=== PATIENT | male | born 2000 | race Caucasian/White ===

== ENCOUNTER 2020-04-20 07:56 | Inpatient (IN) ==
[2020-04-20] MEDS ORDERED: LORazepam 1 MG TAB SL STA (09:16)
[2020-04-20 09:48] LABS: Basophils # (auto) 0.04 K/uL (0-0.2); Basophils % (auto) 0.4 %; Eosinophils # (auto) 0.05 K/uL (0-0.5); Eosinophils % (auto) 0.5 %; Hematocrit (blood only) 44.8 % (42-52); Hemoglobin 16.6 g/dL (14.0-18.0); Immature Granulocytes # (auto) 0.02 K/uL (0.00-0.02); Immature Granulocytes % (auto) 0.2 %; Lymphocytes # (auto) 1.52 K/uL (1.2-3.4); Lymphocytes % (auto) 15.7 %; Mean Corpuscular Hemoglobin 33.6 pg (25-34); Mean Corpuscular Hgb Conc 37.1 g/dL (32-36); Mean Corpuscular Volume 90.7 fL (80-100); Mean Platelet Volume 9.8 fL (7.4-10.4); Monocytes # (auto) 0.69 K/uL (0.11-0.59); Monocytes % (auto) 7.1 %; Neutrophils # (auto) 7.34 K/uL (1.4-6.5); Neutrophils % (auto) 76.1 %; Platelet Count 341 K/uL (130-400); RDW Coefficient of Variation 12.3 % (11.5-14.5); RDW Standard Deviation 41.1 fL (36.4-46.3); Red Blood Count 4.94 M/uL (4.7-6.1); White Blood Count 9.66 K/uL (4.8-10.8)
[2020-04-20 09:55] LABS: Appearance Urine Clear (Clear); Bacteria Urine Automated Negative (Negative); Bilirubin Urine Negative (Negative); Blood Urine Negative (Negative); Color Urine Dark Yellow; Glucose Urine UA Negative (Negative); Ketones Urine 3+ (Negative); Leukocyte Esterase Urine Negative (Negative); Nitrite Urine Negative (Negative); Protein Urine 1+ (Negative); RBC Urine Automated 0-4 /hpf (0-4); Specific Gravity Urine 1.029 (1.000-1.030); Urobilinogen Urine Negative (Negative)
[2020-04-20 10:05] LABS: Albumin Level 4.9 gm/dl (3.4-5.0); BUN Creatinine Ratio 12.7 (10-20); Calcium 9.4 mg/dl (8.5-10.1); Creatinine Clr Calc Pharmacy 99.9 ml/min; Est GFR (African American) 107.8; Est GFR (Non-African American) 93.1; Potassium 3.4 mmol/L (3.5-5.1)
[2020-04-20 10:12] LABS: Acetaminophen < 2 ug/ml (10-30); Salicylate < 1.7 mg/dl (2.8-20)
[2020-04-20 10:15] LABS: Albumin Globulin Ratio 1.3 (0.9-2); Bilirubin,Total 1.2 mg/dl (0.2-1); Globulin 3.7 gm/dl (2.5-4.0); Thyroid Stimulating Hormone 1.57 uIu/ml (0.300-4.500); Total Protein 8.6 gm/dl (6.4-8.2)
[2020-04-20 10:22] LABS: Amphetamines+Metham, Urine Neg (Neg); Barbiturates, Urine Neg (Neg); Benzodiazepine, Urine Neg (Neg); Cocaine, Urine Neg (Neg); MDMA (Ecstacy), Urine Neg (Neg); Methadone, Urine Neg (Neg); Opiate, Urine Neg (Neg); Phencyclidine, Urine Neg (Neg)
--- NOTE | 2020-04-20 12:17 | Emergency Department Note ---
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 Patient reports he has been progressively feeling this way over the past month or so but became worse over the past several days after becoming aware of the of a friend/acquaintance online and began thinking that it "could be him in any moment." The patient's friend and girlfriend were concerned and the patient's parents were contacted who drove up from [place] and were attempting to have the patient come back to them to their home in [place] where he could get some rest and gather himself however he did not feel "safe doing this". Ultimately he agreed and was interested in coming to the hospital for evaluation. However this in and of itself was a challenge as he perseverated on safety and apparently had to walk around her car numerous times before deciding it was not safe and thought to take an Welch but then perseverated on this not being safe as well. After repeated attempts they were able to get the patient in the car to the emergency department today. The patient denies any thoughts of hurting himself or others. He denies hearing voices other stone here. He reports having used marijuana in the past but has not done so recently. He denies any heavy alcohol use recently. On arrival the patient is anxious appearing but no acute distress, afebrile s table vital signs. He does exhibit pressured speech with flight of ideas and while he can be redirected this is somewhat difficult to do at times. He does admit that he knows some of his concerns are not "real" but he cannot help but being preoccupied with this. He initially was contemplating psychiatric admission voluntarily as his friends had encouraged him to do so but then he easily wavers on this and asks if he would be able to "sign himself out". We did discuss options with the patient and mother at the bedside about placement in the area versus attempting to go home to [place] and seek placement there however the patient certainly is exhibiting severe manic symptoms and it is arnie btful if they would physically/safely be able to get the patient safely to [place] for evaluation and placement. We did agree to proceed with medical clearance and blood work was performed which was unremarkable. WBC, H/H, platelets wnl. Chemistry without acidosis. LFTs and electrolytes without si gnificant abnormalities. UA negative for infection. Etoh undetectable. Drug screen positive for Marijuana. Covid-19 RNA, NAAT negative. Patient was medically cleared. Given the patient's degree of disorganization he certainly is limited and would not be considered to have capacity to decline treatment at this time. Thus, we will proceed with 302 petition given concern for inability to function and associated patient safety due to severe violet. Psychiatric CM and I discussed plan at length with patient's parents at the bedside and they are in agreement. Patient accepted to 3S under 302. Triage Nursing notes reviewed and agree them. Additional history obtained from mother. Prior medical records reviewed Vital Signs: reviewed and remarkable for no significant abnormalities Differential diagnosis: Mood disorder, infection, hypoglycemia, electrolyte abnormalities, cardiac sources, intracerebral event, toxicologic, trauma, neurologic, as well as other pathologies. ER treatment provided: See below. Laboratory studies: See below HPI: The patient is a 19-year-old [employer] student who presents to the emergency department accompanied by his mother with concern for new onset paranoid delusions in the setting of having insomnia where the patient has not slept for several days and continues to be concerned that he is "not safe". Patient reports he has been progressively feeling this way over the past month or so but became worse over the past several days after becoming aware of the of a friend/acquaintance online and began thinking that it "could be him in any moment." The patient's friend and girlfriend were concerned and the patient's parents were contacted who drove up from [place] and were attempting to have the patient come back to them to their home in [place] where he could get some rest and gather himself however he did not feel "safe doing this". Ultimately he agreed and was interested in coming to the hospital for evaluation. However this in and of itself was a challenge as he perseverated on safety and apparently had to walk around her car numerous times before deciding it was not safe and thought to take an Welch but then perseverated on this not being safe as well. After repeated attempts they were able to get the patient in the car to the emergency department today. The patient denies any thoughts of hurting himself or others. He denies hearing voices other stone here. He reports having used marijuana in the past but has not done so recently. He denies any heavy alcohol use recently. ROS: See above HPI for pertinent positives & negatives. A total of 10 systems reviewed and were otherwise negative. PAST MEDICAL HISTORY:See Below PAST SURGICAL HISTORY:See Below FAMILY HISTORY:See Below SOCIAL HISTORY:See Below HOME MEDICATIONS:See Below ALLERGIES:See Below VITALS:See Below PHYSICAL EXAMINATION: GENERAL: Awake, alert, restless/anxious-appearing, in no distress HENT: Normocephalic, atraumatic. Oropharynx unremarkable. EYES: Normal conjunctiva. Sclera non-icteric. EOMI. No nystamgus. PEARRL. NECK: Supple. No nuchal rigidity. FROM. No JVD. RESPIRATORY: Clear to auscultation. CARDIAC: Regular rate, normal rhythm. Extremities warm and well perfused. Pulses equal. ABDOMEN: Soft, non-distended. No tenderness to palpation. No rebound or guarding. No masses. RECTAL: Deferred. MUSCULOSKELETAL: Chest examination reveals no tenderness. The back is symmetrical on inspection without obvious abnormality. There is no CVA tenderness to palpation. No joint edema. LOWER EXTREMITIES: Calves are equal size bilaterally and non-tender. No edema. No discoloration. NEURO: Normal sensorium. No sensory or motor deficits noted. DTRs wnl. No clonus. SKIN: No rash or jaundice noted. PSYCH: Anxious appearing with colorful affect, pressured speech, flight of ideas. Positive paranoid delusions. Poor insight. Denies hallucinations, SI/HI, hopelessness. Ariel Cavanaugh MD Past Med/Surg History Medical History No active medical problems Social History Smoking Status: Current every day smoker Preferred Language: Colombian Communication Ability: Effective Beliefs That Will Affect Care: None Feels Safe at Home: Yes Assistive Devices: None Allergies Allergies Allergy/AdvReac Type Severity Reaction Status Date / Time No Known Allergies Allergy Unverified 04/20/20 13:32 Home Meds Home Medications Medication Instructions Recorded Confirmed No Known Home Medications 04/20/20 04/20/20 Results & Data (ED) Vital Signs Vital Signs - 24 hr 04/20/20 08:06 04/20/20 08:15 04/20/20 11:02 Temperature 36.7 C Temperature Source Oral Oral Pulse Rate 87 Pulse Rate [Right Finger] 78 Respiratory Rate 18 18 Respiratory Effort / Characteristics Non-Labored Non-Labored Respiratory Depth Normal Normal Blood Pressure 142/88 H Blood Pressure [Right Arm] 142/88 H Blood Pressure Mean 106 Blood Pressure Mean [Right Arm] 106 Pulse Oximetry 96 98 Oxygen Delivery Method Room Air Room Air Sepsis Recent Fever Within 48 Hours No Sepsis New/Unexplained Change in Mental Status N/A Sepsis Action Taken by Nursing No Action Required Laboratory Data Attestation: I reviewed the patient's lab results. Result diagrams: 04/20/20 09:30 04/20/20 09:30 Lab Results 04/20/20 04/20/20 04/20/20 Range/Units 09:30 09:30 09:30 WBC 9.66 (4.8-10.8) K/uL RBC 4.94 (4.7-6.1) M/uL Hgb 16.6 (14.0-18.0) g/dL Hct 44.8 (42-52) % MCV 90.7 (80-100) fL MCH 33.6 (25-34) pg MCHC 37.1 H (32-36) g/dL RDW Std Deviation 41.1 (36.4-46.3) fL RDW Coeff of Susan 12.3 (11.5-14.5) % Plt Count 341 (130-400) K/uL MPV 9.8 (7.4-10.4) fL Immature Gran % (Auto) 0.2 % Neut % (Auto) 76.1 % Lymph % (Auto) 15.7 % Thayer % (Auto) 7.1 % Eos % (Auto) 0.5 % Baso % (Auto) 0.4 % Neut # (Auto) 7.34 H (1.4-6.5) K/uL Lymph # (Auto) 1.52 (1.2-3.4) K/uL Thayer # (Auto) 0.69 H (0.11-0.59) K/uL Eos # (Auto) 0.05 (0-0.5) K/uL Baso # (Auto) 0.04 (0-0.2) K/uL Immature Gran # (Auto) 0.02 (0.00-0.02) K/uL Sodium 138 (136-145) mmol/L Potassium 3.4 L (3.5-5.1) mmol/L Chloride 104 (98-107) mmol/L Carbon Dioxide 22 (21-32) mmol/L Anion Gap 12.0 H (3-11) BUN 14 (7-18) mg/dl Creatinine 1.13 (0.6-1.4) mg/dl Est Cr Clr Drug Dosing 99.9 ml/min Est GFR ( Amer) 107.8 Est GFR (Non-Af Amer) 93.1 BUN/Creatinine Ratio 12.7 (10-20) Glucose 114 H (70-99) mg/dl Calcium 9.4 (8.5-10.1) mg/dl Total Bilirubin 1.2 H (0.2-1) mg/dl AST 20 (15-37) U/L ALT 25 (12-78) U/L Alkaline Phosphatase 67 (45-117) U/L Total Protein 8.6 H (6.4-8.2) gm/dl Albumin 4.9 (3.4-5.0) gm/dl Globulin 3.7 (2.5-4.0) gm/dl Albumin/Globulin Ratio 1.3 (0.9-2) TSH 1.570 (0.300-4.500) uIu/ml Salicylates < 1.7 L (2.8-20) mg/dl Acetaminophen < 2 L (10-30) ug/ml Ethyl Alcohol mg/dL (0-3) mg/dl COVID-19 Eval Order SARS-CoV-2, RNA, NAAT (NEGATIVE) 04/20/20 04/20/20 04/20/20 Range/Units 09:30 12:10 12:10 WBC (4.8-10.8) K/uL RBC (4.7-6.1) M/uL Hgb (14.0-18.0) g/dL Hct (42-52) % MCV (80-100) fL MCH (25-34) pg MCHC (32-36) g/dL RDW Std Deviation (36.4-46.3) fL RDW Coeff of Susan (11.5-14.5) % Plt Count (130-400) K/uL MPV (7.4-10.4) fL Immature Gran % (Auto) % Neut % (Auto) % Lymph % (Auto) % Thayer % (Auto) % Eos % (Auto) % Baso % (Auto) % Neut # (Auto) (1.4-6.5) K/uL Lymph # (Auto) (1.2-3.4) K/uL Thayer # (Auto) (0.11-0.59) K/uL Eos # (Auto) (0-0.5) K/uL Baso # (Auto) (0-0.2) K/uL Immature Gran # (Auto) (0.00-0.02) K/uL Sodium (136-145) mmol/L Potassium (3.5-5.1) mmol/L Chloride (98-107) mmol/L Carbon Dioxide (21-32) mmol/L Anion Gap (3-11) BUN (7-18) mg/dl Creatinine (0.6-1.4) mg/dl Est Cr Clr Drug Dosing ml/min Est GFR ( Amer) Est GFR (Non-Af Amer) BUN/Creatinine Ratio (10-20) Glucose (70-99) mg/dl Calcium (8.5-10.1) mg/dl Total Bilirubin (0.2-1) mg/dl AST (15-37) U/L ALT (12-78) U/L Alkaline Phosphatase (45-117) U/L Total Protein (6.4-8.2) gm/dl Albumin (3.4-5.0) gm/dl Globulin (2.5-4.0) gm/dl Albumin/Globulin Ratio (0.9-2) TSH (0.300-4.500) uIu/ml Salicylates (2.8-20) mg/dl Acetaminophen (10-30) ug/ml Ethyl Alcohol mg/dL < 3.0 (0-3) mg/dl COVID-19 Eval [facility] SARS-CoV-2, RNA, NAAT NEGATIVE (NEGATIVE) Administered Medications Discontinued Medications Lorazepam (Lorazepam 1 Mg Tab) 1 mg SL NOW STA Stop: 04/20/20 09:17 Last Admin: 04/20/20 10:58 Dose: Not Given Documented by: [id number] Discharge Plan Visit Data Chief Complaint: Mental Health Evaluation Stated Complaint: MENTAL HEALTH EVAL ED Provider: Ariel Cavanaugh Discharge Problem: Paranoid delusion, Manic behavior Patient Disposition: Admitted As Inpatient Discharge Instructions Interventions: ED Discharge Assessment Last Done: 04/20/20 15:28
[2020-04-20] MEDS ORDERED: SODIUM CHLORIDE 0.65% NA SOLN 45 ML (OCEAN) PRN (14:13)
[2020-04-20] MEDS ORDERED: ACETAMINOPHEN 325 MG TAB PO PRN (14:13)
[2020-04-20] MEDS ORDERED: ALUMINUM/MAGNESIUM SUSP 30 ML UDC PO PRN (14:13)
[2020-04-20] MEDS ORDERED: MAGNESIUM HYDROXIDE SUSP 30 ML UDC PO PRN (14:13)
[2020-04-20] MEDS ORDERED: BISMUTH SUBSALICYLATE LIQD 236 ML PO PRN (14:13)
[2020-04-20] MEDS ORDERED: hydrOXYzine HCl 25 MG TAB PO PRN (14:13)
[2020-04-20] MEDS: LORazepam 1 MG TAB PO PRN (23:33)
--- NOTE | 2020-04-21 10:01 | History & Physical ---
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 He does use MJ but recent use seems significantly decreased compared to prior to episode which would argue against substance induced psychosis and there is a family history of bipolar disorder. He is clearing following prn Risperdal and is willing to continue it. (1) Bipolar 1 disorder: The patient was admitted to the [facility] ([facility] mental [facility]) on q15 min checks (behavioral with suicide precautions) for safety. The patient will participate in group, recreational, and milieu therapies and will be offered additional individual and family sessions as clinically appropriate. Risks/benefits/alternatives reviewed as able re: Risperdal M tab 1 mg po qhs with additional prn. discussion included but was not limited to need for metabolic monitoring and risks of TD. Metabolic labs in am. Inventory Assets Strengths: intelligent, family support Needs: increase insight into condition, follow up providers. Risk Factors Assessment Male: Yes : Yes Do You Have Access To A Gun?: No Mental Health Diagnoses: Yes Previous Attempt: No Protective Factors Assessment : No Responsible for Young Children: No Employed: No Supportive Family: Yes Psychiatric History Identifying Data HECTOR TIPTON is a 19-year-old [employer] student from , has no prior psych history, and was admitted on 04/20/20 14:14 on a 302 commitment for disorganized and paranoid behavior. Chief Complaint "I just got really into work and wasn't sleeping". History of Present Illness Patient's roommates contacted family as he was not eating or sleeping well for several days and seemed disorganized. He became overly focussed on dying from food allergy after reading a story about a [facility] student dying from a reaction. Parents drove from to assist and had difficulty convincing him to come to ED due to his paranoia. He did not seem to understand the severity of his condition or what inpatient psych care would entail so he was ultimately committed. He exhibited restlessness and grandiosity but was not aggressive in ED but remained resistant to medication. Last night he accepted prn Ativan and Risperdal Mtab as ordered and was able to sleep 5 hours. He was up for a bit and then when back to sleep. Today he reports that he has been sleeping 4 hours a night for 2-3 weeks. 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 He denies investing his own money and add "yeah, I'm talking too fast--it sounds shady but it's not." He denies previous periods of depression, violet or hypomania. He states that his thoughts were racing about food being unsafe and that is improving but he'd prefer if staff would eat some of the food that he is to eat as a "taster". Past Psychiatric History Previous Psych History: none Current Psychiatric Diagnosis: None Previous Psych Admissions: none Do You Have Access To A Gun?: No History of Previous Suicide Attempt: No Past Medication Trials: n/a Allergies Allergy/AdvReac Type Severity Reaction Status Date / Time No Known Allergies Allergy Unverified 04/20/20 13:32 Home Medications Medication Instructions Recorded Confirmed Type No Known Home Medications 04/20/20 04/20/20 History Family History Family History of: Bipolar (maternal aunt) Alcohol History Hx of Alcohol Use Over the Past 12 Months: Yes (occasionally) Smoking Use Have You Smoked or Used Tobacco Products in the Last 30 Days: Yes tobacco type: e-cigarettes Smoking Status: Current every day smoker Substance History Hx of Prescription Med Misuse Over the Past 12 Months: No Hx of Over the Counter Med Misuse Over the Past 12 Months: No Hx of Inhalent Misuse Over the Past 12 Months: No Hx of Organic Substance Use Over the Past 12 Months: Yes (marijuana several times per week) Hx of Illegal Substances/Street Drug Use Over Past 12 Months: No Problems as a Result of Past Substance Use: None Identified Problems as a Result of Past Substance Use Comments: Unable to confirm problems related to substance use. Personal History Living Arrangements: Apartment Childhood: middle son of 3 boys Highest Grade Completed: High School Graduate and Some College ([employer]) Employment Status: Student Marital Status: Single Number Of Children: none Beliefs That Will Affect Care: None Current Legal Problems: No Hx Legal Problems: No Hx Traumatic Life Events: No Patient History Medical History No active medical problems Social History Smoking Status: Current every day smoker Preferred Language: Filipino Communication Ability: Effective Beliefs That Will Affect Care: None Feels Safe at Home: Yes Assistive Devices: None Review of Systems Review of Systems: All systems reviewed & are unremarkable except as noted in HPI & below Physical Exam Psychiatric: Orientation: alert Apperance: + disheveled Eye Contact: + fair eye contact Motor Behavior: no abnormal motor movements speech is hyperverbal but redirectible Affect: + labile affect (inappropriate laughter) Mood: + anxious mood Thought Process: + tangential thought process Thought Content: + paranoid and + delusions (grandiosity) Suicidal Thoughts: denies suicidal thoughts Homicidal Thoughts: denies homicidal thoughts Hallucinations: no auditory hallucinations and no visual hallucinations Cognition: language grossly intact; + attention not intact Estimated Intelligence: consistent with education level Insight: + poor insight Judgement: + poor judgement Vital Signs (Past 24 Hours): Last Vital Signs Temp 36.7 C 04/20/20 21:26 Pulse 106 H 04/20/20 15:52 Resp 20 04/20/20 15:52 BP 136/87 04/20/20 15:52 Pulse Ox 98 04/20/20 15:28 Exam Statement: A physical exam was performed in the ED by Dr. Cavanaugh for the purposes of medical clearance. I accept that physical as correct and adequate for the purposes of the inpatient physical exam. Results & Data ([facility]) Laboratory Results Laboratory Results - last 24 hr 04/20/20 04/20/20 04/20/20 09:30 09:30 09:30 Sodium 138 Potassium 3.4 L Chloride 104 Carbon Dioxide 22 Anion Gap 12.0 H BUN 14 Creatinine 1.13 Est Cr Clr Drug Dosing 99.9 Est GFR ( Amer) 107.8 Est GFR (Non-Af Amer) 93.1 BUN/Creatinine Ratio 12.7 Glucose 114 H Calcium 9.4 Total Bilirubin 1.2 H AST 20 ALT 25 Alkaline Phosphatase 67 Total Protein 8.6 H Albumin 4.9 Globulin 3.7 Albumin/Globulin Ratio 1.3 TSH 1.570 Salicylates < 1.7 L Urine Opiates Screen Ur Methadone, Qual Acetaminophen < 2 L Urine Barbiturates Ur Phencyclidine (PCP) U Amphetamin/Meth Scrn MDMA (Ecstasy) Screen U Benzodiazepines Scrn Ur Cocaine Metabolite U Marijuana (THC) Screen U Marijuana THC Carboxy Drug Screen Comment Ethyl Alcohol mg/dL < 3.0 COVID-19 Eval Order SARS-CoV-2, RNA, NAAT 04/20/20 04/20/20 04/20/20 12:10 12:10 Unknown Sodium Potassium Chloride Carbon Dioxide Anion Gap BUN Creatinine Est Cr Clr Drug Dosing Est GFR ( Amer) Est GFR (Non-Af Amer) BUN/Creatinine Ratio Glucose Calcium Total Bilirubin AST ALT Alkaline Phosphatase Total Protein Albumin Globulin Albumin/Globulin Ratio TSH Salicylates Urine Opiates Screen Neg Ur Methadone, Qual Neg Acetaminophen Urine Barbiturates Neg Ur Phencyclidine (PCP) Neg U Amphetamin/Meth Scrn Neg MDMA (Ecstasy) Screen Neg U Benzodiazepines Scrn Neg Ur Cocaine Metabolite Neg U Marijuana (THC) Screen Pos H U Marijuana THC Carboxy Drug Screen Comment Ethyl Alcohol mg/dL COVID-19 Eval [facility] SARS-CoV-2, RNA, NAAT NEGATIVE 04/20/20 Unknown Sodium Potassium Chloride Carbon Dioxide Anion Gap BUN Creatinine Est Cr Clr Drug Dosing Est GFR ( Amer) Est GFR (Non-Af Amer) BUN/Creatinine Ratio Glucose Calcium Total Bilirubin AST ALT Alkaline Phosphatase Total Protein Albumin Globulin Albumin/Globulin Ratio TSH Salicylates Urine Opiates Screen Ur Methadone, Qual Acetaminophen Urine Barbiturates Ur Phencyclidine (PCP) U Amphetamin/Meth Scrn MDMA (Ecstasy) Screen U Benzodiazepines Scrn Ur Cocaine Metabolite U Marijuana (THC) Screen U Marijuana THC Carboxy Pending Drug Screen Comment Pending Ethyl Alcohol mg/dL COVID-19 Eval Order SARS-CoV-2, RNA, NAAT Current Inpatient Medications Current Inpatient Medications: Current Inpatient Medications Acetaminophen (Acetaminophen 325 Mg Tab) 650 mg PO Q4H PRN PRN Reason: Headache or Minor Fever Stop: 05/20/20 14:12 Al Hydrox/Mg Hydrox/Simethicone (Aluminum/Magnesium Susp 30 Ml Udc) 30 ml PO Q4H PRN PRN Reason: GI Upset Stop: 05/20/20 14:12 Bismuth Subsalicylate (Bismuth Subsalicylate Liqd 236 Ml) 15 ml PO PRN PRN PRN Reason: Loose Stool Stop: 05/20/20 14:12 Hydroxyzine HCl (Hydroxyzine Hcl 25 Mg Tab) 50 mg PO HSZ PRN PRN Reason: Insomnia Stop: 05/20/20 14:12 Hydroxyzine HCl (Hydroxyzine Hcl 25 Mg Tab) 25 mg PO Q4H PRN PRN Reason: Anxiety Stop: 05/20/20 14:12 Lorazepam (Lorazepam 1 Mg Tab) 1 mg PO Q6 PRN PRN Reason: Anxiety Stop: 05/20/20 14:16 Last Admin: 04/20/20 23:33 Dose: 1 mg Documented by: Magnesium Hydroxide (Magnesium Hydroxide Susp 30 Ml Udc) 30 ml PO DAILY PRN PRN Reason: Constipation Stop: 05/20/20 14:12 Risperidone (Risperidone Odt 1mg) 1 mg PO Q6 PRN PRN Reason: Agitation Stop: 05/20/20 14:15 Last Admin: 04/20/20 23:33 Dose: 1 mg Documented by: Sodium Chloride (Sodium Chloride 0.65% Na Soln 45 Ml (Porter)) 1 - 2 sprays NA PRN PRN PRN Reason: Nasal Dryness/Congestion Stop: 05/20/20 14:12
[2020-04-21] MEDS ORDERED: BENZTROPINE MESYLATE 1 MG TAB PO PRN (10:30)
[2020-04-21] MEDS: LORazepam 1 MG TAB PO PRN (15:41)
[2020-04-22 07:26] LABS: Marijuana Quant, GCMS Urine 54 ng/mL (<5)
[2020-04-22 07:47] LABS: Glucose Fasting 92 mg/dl (70-99)
[2020-04-22 07:53] LABS: Chol HDL Ratio 2; Cholesterol 160 mg/dl (0-200); HDL Cholesterol 68 mg/dl; LDL Cholesterol Calculated 70 mg/dl; Triglycerides 109 mg/dl (0-150); VLDL Cholesterol 22 mg/dl
[2020-04-22] MEDS: LORazepam 1 MG TAB PO PRN (10:48)
--- NOTE | 2020-04-22 12:56 | Psychiatric Progress Note ---
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 He does use MJ but recent use seems significantly decreased compared to prior to episode which would argue against substance induced psychosis and there is a family history of bipolar disorder. Started Risperdal 1 mg hs & prn. 04/22--sleep and expansiveness improving, remains paranoid around food and blood draw. (1) Bipolar 1 disorder: 04/21/20--The patient was admitted to the [facility] ([facility]) on q15 min checks (behavioral with suicide precautions) for safety. The patient will participate in group, recreational, and milieu therapies and will be offered additional individual and family sessions as clinically appropriate. Risks/benefits/alternatives reviewed as able re: Risperdal M tab 1 mg po qhs with additional prn. discussion included but was not limited to need for metabolic monitoring and risks of TD. Metabolic labs in am. 04/22/20--increase Risperdal M tab to 0.5 mg po qam and 1 mg po qhs. It has been quite difficult to get patient to accept meds, but prefer trial of bid given tachy/low diastolic bp (likely dehydration). If he would refuse medications I do feel he is at significant risk of or serious injury due to his mental illness interfering with sleep/eating/safety within 30 days so I would support medications over objection. Inventory Assets Strengths: intelligent, family support Needs: increase insight into condition, follow up providers. Risk Factors Assessment Male: Yes : Yes Do You Have Access To A Gun?: No Mental Health Diagnoses: Yes Previous Attempt: No Protective Factors Assessment : No Responsible for Young Children: No Employed: No Supportive Family: Yes Interval History Identifying Information 19 yo male admit on 302 commitment for severe insomnia and subsequent paranoia. Chief Complaint "I still get worried about the food stuff, I said too much". Review of Systems Sleep Information Total Hours of Sleep: 7.25 Meal Information Percent Meal Consumed - Breakfast: 100 Percent Meal Consumed - Lunch: 50 Percent Meal Consumed - Dinner: 75 Nutrition Comment: pt. ate crenshaw, banana, and some packaged foods without prompting Subjective Subjective Patient was seen & assessed and interval progress reviewed with treatment team. Patient was walking in hallway without difficulty or exercise intolerance then met with me 1-on-1. When discussing his delusions he became very anxious, felt dizzy and tachy which resolved with Ativan though would not cause hypotension, likely related to fluid status as not drinking much. Prefers prepackaged food still but is eating. Some impulsive/disorganized behaviors like flushing saltines down the toilet and unable to state why. still hypertalkative at times. Physical Exam Psychiatric Orientation: alert Apperance: appropriately groomed Eye Contact: + fair eye contact Motor Behavior: no abnormal motor movements Affect: + anxious affect Mood: + anxious mood Thought Process: + tangential thought process Thought Content: + paranoid and + delusions (about food killing him) Suicidal Thoughts: denies suicidal thoughts Homicidal Thoughts: denies homicidal thoughts Hallucinations: no auditory hallucinations and no visual hallucinations Cognition: language grossly intact; + attention not intact Estimated Intelligence: consistent with education level Insight: + poor insight Judgement: + poor judgement Vital Signs (Past 24 Hours) Last Vital Signs Temp 36.5 C 04/22/20 06:56 Pulse 89 04/22/20 06:56 Resp 18 04/22/20 06:56 BP 117/83 04/22/20 06:56 Pulse Ox 98 04/20/20 15:28 Results & Data ([facility]) Laboratory Results Laboratory Results - last 24 hr 04/20/20 04/22/20 Unknown 07:13 Fasting Glucose 92 Triglycerides 109 Cholesterol 160 LDL Cholesterol, Calc 70 VLDL Cholesterol, Calc 22 HDL Cholesterol 68 Cholesterol/HDL Ratio 2 U Marijuana THC Carboxy 54 H Drug Screen Comment SEE NOTE Current Inpatient Medications Current Inpatient Medications: Current Inpatient Medications Acetaminophen (Acetaminophen 325 Mg Tab) 650 mg PO Q4H PRN PRN Reason: Headache or Minor Fever Stop: 05/20/20 14:12 Al Hydrox/Mg Hydrox/Simethicone (Aluminum/Magnesium Susp 30 Ml Udc) 30 ml PO Q4H PRN PRN Reason: GI Upset Stop: 05/20/20 14:12 Benztropine Mesylate (Benztropine Mesylate 1 Mg Tab) 1 mg PO TID PRN PRN Reason: Muscle Spasm Stop: 05/21/20 10:29 Bismuth Subsalicylate (Bismuth Subsalicylate Liqd 236 Ml) 15 ml PO PRN PRN PRN Reason: Loose Stool Stop: 05/20/20 14:12 Hydroxyzine HCl (Hydroxyzine Hcl 25 Mg Tab) 50 mg PO HSZ PRN PRN Reason: Insomnia Stop: 05/20/20 14:12 Hydroxyzine HCl (Hydroxyzine Hcl 25 Mg Tab) 25 mg PO Q4H PRN PRN Reason: Anxiety Stop: 05/20/20 14:12 Lorazepam (Lorazepam 1 Mg Tab) 1 mg PO Q6 PRN PRN Reason: Anxiety Stop: 05/20/20 14:16 Last Admin: 04/22/20 10:48 Dose: 1 mg Documented by: Magnesium Hydroxide (Magnesium Hydroxide Susp 30 Ml Udc) 30 ml PO DAILY PRN PRN Reason: Constipation Stop: 05/20/20 14:12 Risperidone (Risperidone Odt 1mg) 1 mg PO Q6 PRN PRN Reason: Agitation Stop: 05/20/20 14:15 Last Admin: 04/21/20 15:41 Dose: 1 mg Documented by: Risperidone (Risperidone Odt 1mg) 1 mg PO HS COY Stop: 05/21/20 21:59 Last Admin: 04/21/20 20:52 Dose: 1 mg Documented by: Sodium Chloride (Sodium Chloride 0.65% Na Soln 45 Ml ([place])) 1 - 2 sprays NA PRN PRN PRN Reason: Nasal Dryness/Congestion Stop: 05/20/20 14:12 Mental Health & Subst Abuse Tx Therapist Name of Therapist: NOne Filenet Architect Name of Filenet Architect: None Post Discharge Appointments Primary Care Physician Name Of Family Doctor: None in this area
[2020-04-23] MEDS: hydrOXYzine HCl 25 MG TAB PO PRN (02:59)
--- NOTE | 2020-04-23 08:07 | Psychiatric Progress Note ---
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 He does use MJ but recent use seems significantly decreased compared to prior to episode which would argue against substance induced psychosis and there is a family history of bipolar disorder. Started Risperdal 1 mg hs & prn. 04/22--sleep and expansiveness improving, remains paranoid around food and blood draw. (1) Bipolar 1 disorder: 04/21/20--The patient was admitted to the [facility] ([facility]) on q15 min checks (behavioral with suicide precautions) for safety. The patient will participate in group, recreational, and milieu therapies and will be offered additional individual and family sessions as clinically appropriate. Risks/benefits/alternatives reviewed as able re: Risperdal M tab 1 mg po qhs with additional prn. discussion included but was not limited to need for metabolic monitoring and risks of TD. Metabolic labs in am. 04/22/20--increase Risperdal M tab to 0.5 mg po qam and 1 mg po qhs. It has been quite difficult to get patient to accept meds, but prefer trial of bid given tachy/low diastolic bp (likely dehydration). If he would refuse medications I do feel he is at significant risk of or serious injury due to his mental illness interfering with sleep/eating/safety within 30 days so I would support medications over objection. --sleep and expansiveness improving, remains paranoid around food and blood draw. 04/23 -reviewed FLP and FG for baseline on an atypical antipsychotic, all values within normal limits. Continue risperidone 0.5 every morning and 1 mg at bedtime, plus as needed medication. -Mood is stabilizing, patient reporting less paranoia, insight improved. He indicates willingness to sign in voluntarily, will revisit again tomorrow. -Schedule family meeting with parents, coordinate with the [employer] as he indicates he will need to medically withdrawal. He will need aftercare in [place]. -Continue to encourage group attendance of participation, and start to work on discharge planning/safety plan. Inventory Assets Strengths: intelligent, family support Needs: increase insight into condition, follow up providers. Risk Factors Assessment Male: Yes : Yes Do You Have Access To A Gun?: No Mental Health Diagnoses: Yes Previous Attempt: No Protective Factors Assessment : No Responsible for Young Children: No Employed: No Supportive Family: Yes Interval History Identifying Information 19 yo male admit on 302 commitment for violet and paranoia. Chief Complaint "Good, I'm very confused still". Review of Systems Sleep Information Total Hours of Sleep: 4.5 Meal Information Percent Meal Consumed - Breakfast: 100 Percent Meal Consumed - Lunch: 80 Percent Meal Consumed - Dinner: 25 Nutrition Comment: per meal record Subjective Subjective Patient was seen & assessed and interval progress reviewed with nursing and social work. Staff report he remains paranoid about food and medication, resistant to take medications and requires extensive encouragement from staff to take his medication. He got hydroxyzine and lorazepam prns. He is declining a family meeting with his parents, although they came to town from and are aware that he is here. On my assessment, he reports he still feels confused, but is starting to eat more and has decided that he needs to take medication, and thinks that is helping. He references another patient who "seems like not the normal patient," and uncertainty about his own state of mind. He does think treatment is helping and that he is feeling better, and says he "doesn't want to leave too soon, until I'm back on track." He says he had "a lot of ideas" about business/investments, "but now I just wanna forget about them, I'm not here to play pretend, just want to live a simple life." He says his family and friends feel he needs to be here, "but I'm a lot different from them, just in the way I view society, a bigger world view." He references thoughts that he's "not sure if I'm supposed to tell someone or not," making connections where he is not sure there are any, and uncertainty about "what I'm doing here." He has paranoia re: sleep, "I get scared I'll fall asleep and forget," but thinks he has been resisting sleep in part because of that. He does say that his sleep is improving, and that the hydroxyzine he received last night was helpful. He reports feeling less paranoid about food, saying he is eating at least half of meals "and when I got here I wouldn't touch anything, I was very paranoid." He states he is open to treatment and wants to know how long he might need to be in the hospital. He is agreeing to a family meeting with parents, wants to withdraw from school, and take time to recover. Physical Exam Psychiatric Orientation: alert and cooperative Apperance: appropriately dressed, appropriately groomed and appeared stated age Tall thin white male dressed in sweatpants and a hooded sweatshirt, wearing a medical facemask, and seated in no acute distress. Eye Contact: good eye contact Motor Behavior: steady gait and station and no abnormal motor movements Speech: normal rate/rhythm/volume of speech Affect: euthymic affect and mood congruent with affect Calm, cooperative, and pleasant. "Better." Thought Process: goal directed thought process Thought Content: + paranoid and + delusions (Patient reports some thoughts that he does not think are reality based) Suicidal Thoughts: denies suicidal thoughts Homicidal Thoughts: denies homicidal thoughts Hallucinations: no auditory hallucinations and no visual hallucinations Cognition: attention grossly intact and language grossly intact; + recent memory not intact Insight: + fair insight Judgement: + fair judgement Vital Signs (Past 24 Hours) Last Vital Signs Temp 36.4 C L 04/23/20 06:53 Pulse 114 H 04/23/20 06:54 Resp 16 04/23/20 06:53 BP 121/78 04/23/20 06:54 Pulse Ox 98 04/20/20 15:28 Results & Data ([facility]) Current Inpatient Medications Current Inpatient Medications: Current Inpatient Medications Acetaminophen (Acetaminophen 325 Mg Tab) 650 mg PO Q4H PRN PRN Reason: Headache or Minor Fever Stop: 05/20/20 14:12 Al Hydrox/Mg Hydrox/Simethicone (Aluminum/Magnesium Susp 30 Ml Udc) 30 ml PO Q4H PRN PRN Reason: GI Upset Stop: 05/20/20 14:12 Benztropine Mesylate (Benztropine Mesylate 1 Mg Tab) 1 mg PO TID PRN PRN Reason: Muscle Spasm Stop: 05/21/20 10:29 Bismuth Subsalicylate (Bismuth Subsalicylate Liqd 236 Ml) 15 ml PO PRN PRN PRN Reason: Loose Stool Stop: 05/20/20 14:12 Hydroxyzine HCl (Hydroxyzine Hcl 25 Mg Tab) 50 mg PO HSZ PRN PRN Reason: Insomnia Stop: 05/20/20 14:12 Last Admin: 04/23/20 02:59 Dose: 50 mg Documented by: Hydroxyzine HCl (Hydroxyzine Hcl 25 Mg Tab) 25 mg PO Q4H PRN PRN Reason: Anxiety Stop: 05/20/20 14:12 Lorazepam (Lorazepam 1 Mg Tab) 1 mg PO Q6 PRN PRN Reason: Anxiety Stop: 05/20/20 14:16 Last Admin: 04/22/20 10:48 Dose: 1 mg Documented by: Magnesium Hydroxide (Magnesium Hydroxide Susp 30 Ml Udc) 30 ml PO DAILY PRN PRN Reason: Constipation Stop: 05/20/20 14:12 Risperidone (Risperidone Odt 1mg) 1 mg PO Q6 PRN PRN Reason: Agitation Stop: 05/20/20 14:15 Last Admin: 04/21/20 15:41 Dose: 1 mg Documented by: Risperidone (Risperidone Odt 1mg) 1 mg PO HS COY Stop: 05/21/20 21:59 Last Admin: 04/22/20 20:59 Dose: 1 mg Documented by: Risperidone (Risperidone Odt 0.5 Mg Soltab) 0.5 mg PO QAM COY Stop: 05/23/20 08:59 Sodium Chloride (Sodium Chloride 0.65% Na Soln 45 Ml ([place])) 1 - 2 sprays NA PRN PRN PRN Reason: Nasal Dryness/Congestion Stop: 05/20/20 14:12 Mental Health & Subst Abuse Tx Therapist Name of Therapist: NOne Deputy Chief Sheriff Name of Deputy Chief Sheriff: None Post Discharge Appointments Primary Care Physician Name Of Family Doctor: None in this area
[2020-04-23] MEDS: risperiDONE ODT 0.5 MG SOLTAB PO SCH (09:05)
[2020-04-23] MEDS: LORazepam 1 MG TAB PO PRN (14:04)
[2020-04-24] MEDS: risperiDONE ODT 0.5 MG SOLTAB PO SCH ×2 (08:52→20:58)
--- NOTE | 2020-04-24 11:05 | Psychiatric Progress Note ---
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 He does use MJ but recent use seems significantly decreased compared to prior to episode which would argue against substance induced psychosis and there is a family history of bipolar disorder. Mood has been improving and is less expansive; however, patient does seem to have ongoing paranoia and some distorted thinking. In general, he is making improvements with current treatment plan. Pt decompensates when speaking with parents on the phone, but will need a family meeting to discuss aftercare when he is appropriate. (1) Bipolar 1 disorder: 04/21/20--The patient was admitted to the [facility] ([facility] health unit) on q15 min checks (behavioral with suicide precautions) for safety. The patient will participate in group, recreational, and milieu therapies and will be offered additional individual and family sessions as clinically appropriate. Risks/benefits/alternatives reviewed as able re: Risperdal M tab 1 mg po qhs with additional prn. discussion included but was not limited to need for metabolic monitoring and risks of TD. Metabolic labs in am. 04/22/20--increase Risperdal M tab to 0.5 mg po qam and 1 mg po qhs. It has been quite difficult to get patient to accept meds, but prefer trial of bid given tachy/low diastolic bp (likely dehydration). If he would refuse medications I do feel he is at significant risk of or serious injury due to his mental illness interfering with sleep/eating/safety within 30 days so I would support medications over objection. --sleep and expansiveness improving, remains paranoid around food and blood draw. 04/23 -reviewed FLP and FG for baseline on an atypical antipsychotic, all values within normal limits. Continue risperidone 0.5 every morning and 1 mg at bedtime, plus as needed medication. -Mood is stabilizing, patient reporting less paranoia, insight improved. He indicates willingness to sign in voluntarily, will revisit again tomorrow. -Schedule family meeting with parents, [facility] with [facility] as he indicates he will need to medically withdrawal. He will need aftercare in [place]. -Continue to encourage group attendance of participation, and start to work on discharge planning/safety plan. 04/24 - Continue risperidone 0.5mg qAM, but titrating evening dose to 1.5mg - pt continues to have prn dosing available. - Pt was hopeful to schedule a family meeting with parents, but has been decompensating after casual phone conversations - will pursue a family meeting when patient is appropriate to participate - Pt indicates tentative plan to return home, and was encouraged to consider a partial hospitalization program if one is available - pt indicated he would be interested in this Inventory Assets Strengths: intelligent, family support Needs: increase insight into condition, follow up providers. Risk Factors Assessment Male: Yes : Yes Do You Have Access To A Gun?: No Mental Health Diagnoses: Yes Previous Attempt: No Protective Factors Assessment : No Responsible for Young Children: No Employed: No Supportive Family: Yes Interval History Identifying Information 19-year-old male admited on 302 commitment for violet and paranoia. Chief Complaint "Good. I'm definitely making progress each day." Review of Systems Notes Constitutional: does report mild fatigue after taking AM risperidone Cardiovascular: denied Respiratory: denied Gastrointestinal: denied Neurological: denied Psychiatric: denies symptoms other than stated above Total of at least 10 systems reviewed, pertinent positives as above and in HPI. Sleep Information Total Hours of Sleep: 5.5 Sleep Comments: patient was up once through the night to get a snack Meal Information Percent Meal Consumed - Breakfast: 100 Percent Meal Consumed - Lunch: 100 Percent Meal Consumed - Dinner: 90 Nutrition Comment: per meal record Subjective Subjective Patient was seen & assessed and interval progress reviewed with treatment team. Staff report the patient continues to be intermittently fearful, reporting to staff that he feels this is 'all part of a game, and [another patient on the unit] is a test." Pt is reportedly eating better, reporting less paranoia about food but is admitting to occasional distrust of staff and peers. Pt was seen today to assess progress since admission. Prior to our conversation, patient required encouragement from staff because he had been very overwhelmed with attempted phone call with his father. Although we are recommending a family meeting to begin sorting out discharge plans, it does not seem that patient is able to tolerate a meeting today. Pt does appear to be less anxious this afternoon and states he is "good. I'm definitely making progress each day." When asked what patient feels specially has improved, he states "my eating, sleeping, I'm showering, and I'm talking to people." He denies feeling as though people are tampering with his meals and reports his goal this evening is to "eat a really big dinner." Pt admits that he feels comfortable speaking with staff about concerns as they arise, but with further questioning he does admit that he still feels something or someone may be orchestrating these events. He states "not so much like a game, but there certainly are a lot of people that seem to have similar ideas here." Pt was reluctant to elaborate on this thought, admitting he had difficulty clearly explaining what he was thinking. This provider did explain that our unit functions as a treatment team, and that we are working collectively to support him and ensure he is able to continue to receive treatment after he leaves the hospital. There were several occasions like this where patient was encouraged to elaborate on thoughts, but he either declined or was unable to articulate his thoughts. Pt does seem to present himself in a professional manner with this provider, almost as if appearing to be more improved than he actually is. He does admit that he is hoping to spend some additional time on the unit "practicing what I learned." We reviewed yuliana douglas planning options and patient stated he would consider a partial hospitalization program back home if one is available. Pt did agree to titrate his dose of risperidone to 0.5mg qAM and 1.5mg qHS. He denied SI as well as other needs or concerns at this time. Physical Exam Psychiatric Orientation: alert, oriented x 3 and cooperative Apperance: appropriately dressed, appropriately groomed and appeared stated age Eye Contact: + fair eye contact Motor Behavior: steady gait and station and no abnormal motor movements Speech: normal rate/rhythm/volume of speech (using very professional language) Affect: + anxious affect (appears timid and shy) Mood: + anxious mood (reports nervousness, especially overwhelmed with phone calls to family); no depressed mood Thought Process: goal directed thought process (in general) Patient does seem to be presenting himself to be more reality-based than he presently is. Thought Content: + cognitive distortions, + ideas of reference and + persecution some residual ideas of reference with regard to feeling this is all part of a game, admitting - "there certainly are a lot of people that seem to have similar ideas here." and "this is definitely not a normal place, there seems to be more to this." Suicidal Thoughts: denies suicidal thoughts, denies suicidal plan and denies suicidal intent Homicidal Thoughts: denies homicidal thoughts Hallucinations: no auditory hallucinations and no visual hallucinations Cognition: attention grossly intact and language grossly intact Estimated Intelligence: consistent with education level Insight: + fair insight Judgement: + fair judgement Vital Signs (Past 24 Hours) Last Vital Signs Temp 36.3 C L 04/24/20 06:44 Pulse 80 04/24/20 06:44 Resp 16 04/24/20 06:44 BP 117/79 04/24/20 06:44 Pulse Ox 98 04/20/20 15:28 Results & Data ([facility]) Current Inpatient Medications Current Inpatient Medications: Current Inpatient Medications Acetaminophen (Acetaminophen 325 Mg Tab) 650 mg PO Q4H PRN PRN Reason: Headache or Minor Fever Stop: 05/20/20 14:12 Al Hydrox/Mg Hydrox/Simethicone (Aluminum/Magnesium Susp 30 Ml Udc) 30 ml PO Q4H PRN PRN Reason: GI Upset Stop: 05/20/20 14:12 Benztropine Mesylate (Benztropine Mesylate 1 Mg Tab) 1 mg PO TID PRN PRN Reason: Muscle Spasm Stop: 05/21/20 10:29 Bismuth Subsalicylate (Bismuth Subsalicylate Liqd 236 Ml) 15 ml PO PRN PRN PRN Reason: Loose Stool Stop: 05/20/20 14:12 Hydroxyzine HCl (Hydroxyzine Hcl 25 Mg Tab) 50 mg PO HSZ PRN PRN Reason: Insomnia Stop: 05/20/20 14:12 Last Admin: 04/23/20 02:59 Dose: 50 mg Documented by: Hydroxyzine HCl (Hydroxyzine Hcl 25 Mg Tab) 25 mg PO Q4H PRN PRN Reason: Anxiety Stop: 05/20/20 14:12 Last Admin: 04/23/20 22:52 Dose: 25 mg Documented by: Lorazepam (Lorazepam 1 Mg Tab) 1 mg PO Q6 PRN PRN Reason: Anxiety Stop: 05/20/20 14:16 Last Admin: 04/23/20 14:04 Dose: 1 mg Documented by: Magnesium Hydroxide (Magnesium Hydroxide Susp 30 Ml Udc) 30 ml PO DAILY PRN PRN Reason: Constipation Stop: 05/20/20 14:12 Risperidone (Risperidone Odt 1mg) 1 mg PO Q6 PRN PRN Reason: Agitation Stop: 05/20/20 14:15 Last Admin: 04/21/20 15:41 Dose: 1 mg Documented by: Risperidone (Risperidone Odt 1mg) 1 mg PO HS COY Stop: 05/21/20 21:59 Last Admin: 04/23/20 21:51 Dose: 1 mg Documented by: Risperidone (Risperidone Odt 0.5 Mg Soltab) 0.5 mg PO QAM COY Stop: 05/23/20 08:59 Last Admin: 04/24/20 08:52 Dose: 0.5 mg Documented by: Sodium Chloride (Sodium Chloride 0.65% Na Soln 45 Ml ([place])) 1 - 2 sprays NA PRN PRN PRN Reason: Nasal Dryness/Congestion Stop: 05/20/20 14:12 Mental Health & Subst Abuse Tx Therapist Name of Therapist: [employer] Name of Vp Purchasing: None Post Discharge Appointments Primary Care Physician Name Of Family Doctor: None in this area
[2020-04-24] MEDS: LORazepam 1 MG TAB PO PRN (12:05)
[2020-04-25] MEDS: risperiDONE ODT 0.5 MG SOLTAB PO SCH ×2 (09:33→20:51)
--- NOTE | 2020-04-25 09:50 | Psychiatric Progress Note ---
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 He does use MJ but recent use seems significantly decreased compared to prior to episode which would argue against substance induced psychosis and there is a family history of bipolar disorder. Mood has been improving and is less expansive and attendance to ADLs is improved; however, patient reports ongoing delusions and paranoia and admits natividad t he has been minimizing these symptoms but is now ready to be open with staff. He does feel that risperidone has been helpful, so will continue encouraging use of prn and titrate scheduled dosing as indicated. Pt decompensates when speaking with parents on the phone (likely delusions of reference), but will need a family meeting to discuss aftercare when he is appropriate. Patient remains at acute risk of harm to himself and others due to the severity of paranoia and delusional thinking. (1) Bipolar 1 disorder: 04/21/20--The patient was admitted to the [facility] ([facility] unit) on q15 min checks (behavioral with suicide precautions) for safety. The patient will participate in group, recreational, and milieu therapies and will be offered additional individual and family sessions as clinically appropriate. Risks/benefits/alternatives reviewed as able re: Risperdal M tab 1 mg po qhs with additional prn. discussion included but was not limited to need for metabolic monitoring and risks of TD. Metabolic labs in am. 04/22/20--increase Risperdal M tab to 0.5 mg po qam and 1 mg po qhs. It has been quite difficult to get patient to accept meds, but prefer trial of bid given tachy/low diastolic bp (likely dehydration). If he would refuse medications I do feel he is at significant risk of or serious injury due to his mental illness interfering with sleep/eating/safety within 30 days so I would support medications over objection. --sleep and expansiveness improving, remains paranoid around food and blood draw. 04/23 -reviewed FLP and FG for baseline on an atypical antipsychotic, all values within normal limits. Continue risperidone 0.5 every morning and 1 mg at bedtime, plus as needed medication. -Mood is stabilizing, patient reporting less paranoia, insight improved. He indicates willingness to sign in voluntarily, will revisit again tomorrow. -Schedule family meeting with parents, coordinate with [facility] as he indicates he will need to medically withdrawal. He will need aftercare in [place]. -Continue to encourage group attendance of participation, and start to work on discharge planning/safety plan. 04/24 - Continue risperidone 0.5mg qAM, but titrating evening dose to 1.5mg - pt continues to have prn dosing available. - Pt was hopeful to schedule a family meeting with parents, but has been decompensating after casual phone conversations - will pursue a family meeting when patient is appropriate to participate - Pt indicates tentative plan to return home, and was encouraged to consider a partial hospitalization program if one is available - pt indicated he would be interested in this 04/25 - Patient remains very delusional and paranoid, admitting that he has been minimizing the delusions and is now ready to be "open and honest about everything" - suspicious of medications, but still agreeing to utilize both scheduled and prn doses. - Risperidone was titrated last evening - consider further titration as indicated. Pt is still requiring prn medications of disorganized thoughts and anxiety - Pt remains unable to tolerate a family meeting at this time - having delusions of reference with numerous individuals, including parents, which would likely negatively contribute to the meeting if done prematurely Inventory Assets Strengths: intelligent, family support Needs: increase insight into condition, follow up providers. Risk Factors Assessment Male: Yes : Yes Do You Have Access To A Gun?: No Mental Health Diagnoses: Yes Previous Attempt: No Protective Factors Assessment : No Responsible for Young Children: No Employed: No Supportive Family: Yes Interval History Identifying Information 19-year-old male admited on 302 commitment for violet and paranoia. Chief Complaint "Really f*cking crazy..." Review of Systems Notes Constitutional: reports fatigue after receiving risperidone Cardiovascular: denied Respiratory: denied Gastrointestinal: denied Neurological: denied Psychiatric: denies symptoms other than stated above Total of at least 10 systems reviewed, pertinent positives as above and in HPI. Sleep Information Total Hours of Sleep: 6.5 Sleep Comments: pt on q-15 minute checks Meal Information Percent Meal Consumed - Breakfast: 100 Percent Meal Consumed - Lunch: 50 Percent Meal Consumed - Dinner: 100 Nutrition Comment: per meal record Subjective Subjective Patient was seen & assessed and interval progress reviewed with nursing and social work. Staff report the patient continues to be suspicious of medications (requesting they be open in front of him) and continues to report paranoia and loose associations. Pt did report during community meeting that he is more confused and struggling with his thoughts, this was reportedly causing his mood to fluctuate between a 4 and an 8/10 throughout the day. Pt was seen today to assess progress since admission. This provider asked the patient how things were going, to which he responded "really f*cking crazy." Pt takes a deep breath before asking, "are you someone I can talk to?" This provider encouraged the patient to share his concerns. He states "I'm just not ok. I'm having a lot of thoughts and I don't know what's real and I need to start being open with you guys about them." Pt started the conversation by stating "this kind of all started because I know information that could be very detrimental to society, things that very few other people know. I know that for a fact to be true." Pt then quickly moved on to stating "and I also know for a fact that people can be erased, they can just be gone. It could happen to me, or any one of the people that are calling in here to check on me." Pt then began discussing feeling that he is not a 'normal patient' and that there is "some kind of higher purpose for me" because "someone mentioned a court order, so I think this is a some sort of government facility, maybe?" This provider did explain the process related to involuntary commitments, and reviewed the fact that the patient has since signed in voluntarily for treatment, in hopes to begin conversations about reality testing. Pt did report this was reassuring and did agree to continue to discuss some of the other thoughts that are leading him to feel "confused and overwhelmed." Pt continued to share, "I'm pretty sure all of the patients are not like me, they all know a lot of things about me, sometimes more than I know about myself. I know this for a fact, but I don't know why." The patient was asked to provide examples and reported "well, like [specific patient] said they had to pee and, like, how would they know to say that when I had to pee too? And they were talking about doing their hair, like they knew that I looked in the mirror and did my hair this morning too." This provider attempted to discuss with the patient that many of us have common experiences like this, that on occasion coincide and attempted to work with the patient to further reality test some of these thoughts. Pt did respond well to these initial attempts and is agreeable with reaching out to staff for assistance with reality testing. He was also offered a prn of risperidone, which he agreed to "only if they bring it in the wrapping and open it in front of me." Pt did begin to seem less overwhelmed, but then reported "I think I'm ready to come to terms with the past 2 years of my life being a lie, or a delusion, or whatever you want to call it..." He then quit talking, and requested the risperidone. Pt was offered to continue conversation, but stated "no, this helped. Thank you." Physical Exam Psychiatric Orientation: alert, oriented x 3 and cooperative (pleasant, but timid) Apperance: appropriately dressed, appropriately groomed and appeared stated age Eye Contact: + fair eye contact Motor Behavior: steady gait and station and no abnormal motor movements Speech: normal rate/rhythm/volume of speech (soft volume) Affect: + depressed affect and + anxious affect Mood: + depressed mood and + anxious mood Thought Process: + flight of ideas and + looseness of associations; + thought process not linear or logical Thought Content: + paranoid, + delusions, + ideas of reference and + persecution Suicidal Thoughts: denies suicidal thoughts but does report worry that he will be "erased" Homicidal Thoughts: denies homicidal thoughts Hallucinations: no auditory hallucinations and no visual hallucinations Cognition: attention grossly intact and language grossly intact Estimated Intelligence: consistent with education level Insight: + impaired insight Judgement: + impaired judgement Vital Signs (Past 24 Hours) Last Vital Signs Temp 36.4 C L 04/25/20 06:38 Pulse 64 04/25/20 06:39 Resp 16 04/25/20 06:38 BP 111/67 04/25/20 06:39 Pulse Ox 98 04/20/20 15:28 Results & Data ([facility]) Current Inpatient Medications Current Inpatient Medications: Current Inpatient Medications Acetaminophen (Acetaminophen 325 Mg Tab) 650 mg PO Q4H PRN PRN Reason: Headache or Minor Fever Stop: 05/20/20 14:12 Al Hydrox/Mg Hydrox/Simethicone (Aluminum/Magnesium Susp 30 Ml Udc) 30 ml PO Q4H PRN PRN Reason: GI Upset Stop: 05/20/20 14:12 Benztropine Mesylate (Benztropine Mesylate 1 Mg Tab) 1 mg PO TID PRN PRN Reason: Muscle Spasm Stop: 05/21/20 10:29 Bismuth Subsalicylate (Bismuth Subsalicylate Liqd 236 Ml) 15 ml PO PRN PRN PRN Reason: Loose Stool Stop: 05/20/20 14:12 Hydroxyzine HCl (Hydroxyzine Hcl 25 Mg Tab) 50 mg PO HSZ PRN PRN Reason: Insomnia Stop: 05/20/20 14:12 Last Admin: 04/23/20 02:59 Dose: 50 mg Documented by: Hydroxyzine HCl (Hydroxyzine Hcl 25 Mg Tab) 25 mg PO Q4H PRN PRN Reason: Anxiety Stop: 05/20/20 14:12 Last Admin: 04/23/20 22:52 Dose: 25 mg Documented by: Lorazepam (Lorazepam 1 Mg Tab) 1 mg PO Q6 PRN PRN Reason: Anxiety Stop: 05/20/20 14:16 Last Admin: 04/24/20 12:05 Dose: 1 mg Documented by: Magnesium Hydroxide (Magnesium Hydroxide Susp 30 Ml Udc) 30 ml PO DAILY PRN PRN Reason: Constipation Stop: 05/20/20 14:12 Risperidone (Risperidone Odt 1mg) 1 mg PO Q6 PRN PRN Reason: Agitation Stop: 05/20/20 14:15 Last Admin: 04/21/20 15:41 Dose: 1 mg Documented by: Risperidone (Risperidone Odt 0.5 Mg Soltab) 0.5 mg PO QAM COY Stop: 05/23/20 08:59 Last Admin: 04/25/20 09:33 Dose: 0.5 mg Documented by: Risperidone (Risperidone Odt 0.5 Mg Soltab) 1.5 mg PO HS COY Stop: 05/24/20 21:59 Last Admin: 04/24/20 20:58 Dose: 1.5 mg Documented by: Sodium Chloride (Sodium Chloride 0.65% Na Soln 45 Ml ([place])) 1 - 2 sprays NA PRN PRN PRN Reason: Nasal Dryness/Congestion Stop: 05/20/20 14:12 Mental Health & Subst Abuse Tx Therapist Name of Therapist: [facility] [employer] Name of [employer]: None Post Discharge Appointments Primary Care Physician Name Of Family Doctor: None in this area
[2020-04-25] MEDS: LORazepam 1 MG TAB PO PRN (12:26)
[2020-04-26] MEDS: risperiDONE ODT 0.5 MG SOLTAB PO SCH (08:37)
[2020-04-26] MEDS: LORazepam 1 MG TAB PO PRN (13:28)
--- NOTE | 2020-04-26 17:28 | Psychiatric Progress Note ---
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 He does use MJ but recent use seems significantly decreased compared to prior to episode which would argue against substance induced psychosis and there is a family history of bipolar disorder. Mood has been improving and is less expansive and attendance to ADLs is improved; however, patient reports ongoing delusions and paranoia and admits natividad t he has been minimizing these symptoms but is now ready to be open with staff. He does feel that risperidone has been helpful, so will continue encouraging use of prn and titrate scheduled dosing as indicated. Pt decompensates when speaking with parents on the phone (likely delusions of reference), but will need a family meeting to discuss aftercare when he is appropriate. Patient remains at acute risk of harm to himself and others due to the severity of paranoia and delusional thinking. As of the afternoon of 04/26/2020 the patient's paranoid believes appear to be clearing. He reports that he has come to realize that the unit staff are genuinely healthcare professionals who were trying to help him. He also says that he is questioning his belief the treatment team members are making disparaging comments about him behind his back. He still harbor some vague believes that there may be people who may be trying to "destroy "him. The patient recalls that he had believed that these p eople thought that they had negative or damning information about him that they might use against him in an effort to destroy him, but he says that he now is able to focus on the fact that he notes that he does not have any history of having engaged in any behavior that would be considered damaging if it were to become known. Further adjustments in the patient's medication regimen are necessary and further stabilization is required before the patient can be safely and appropriately discharged to the community. The differential diagnosis includes drug-induced psychosis, atypical depression with psychotic features, and schizophreniform disorder. (1) Bipolar 1 disorder: 04/21/20--The patient was admitted to the [facility] ([facility] unit) on q15 min checks (behavioral with suicide precautions) for safety. The patient will participate in group, recreational, and milieu therapies and will be offered additional individual and family sessions as clinically appropriate. Risks/benefits/alternatives reviewed as able re: Risperdal M tab 1 mg po qhs with additional prn. discussion included but was not limited to need for metabolic monitoring and risks of TD. Metabolic labs in am. 04/22/20--increase Risperdal M tab to 0.5 mg po qam and 1 mg po qhs. It has been quite difficult to get patient to accept meds, but prefer trial of bid given tachy/low diastolic bp (likely dehydration). If he would refuse medications I do feel he is at significant risk of or serious injury due to his mental illness interfering with sleep/eating/safety within 30 days so I would support medications over objection. --sleep and expansiveness improving, remains paranoid around food and blood draw. 04/23 -reviewed FLP and FG for baseline on an atypical antipsychotic, all values within normal limits. Continue risperidone 0.5 every morning and 1 mg at bedtime, plus as needed medication. -Mood is stabilizing, patient reporting less paranoia, insight improved. He indicates willingness to sign in voluntarily, will revisit again tomorrow. -Schedule family meeting with parents, coordinate with the [facility] as he indicates he will need to medically withdrawal. He will need aftercare in [place]. -Continue to encourage group attendance of participation, and start to work on discharge planning/safety plan. 04/24 - Continue risperidone 0.5mg qAM, but titrating evening dose to 1.5mg - pt continues to have prn dosing available. - Pt was hopeful to schedule a family meeting with parents, but has been decompensating after casual phone conversations - will pursue a family meeting when patient is appropriate to participate - Pt indicates tentative plan to return home, and was encouraged to consider a partial hospitalization program if one is available - pt indicated he would be interested in this 04/25 - Patient remains very delusional and paranoid, admitting that he has been minimizing the delusions and is now ready to be "open and honest about everything" - suspicious of medications, but still agreeing to utilize both scheduled and prn doses. - Risperidone was titrated last evening - consider further titration as indicate d. Pt is still requiring prn medications of disorganized thoughts and anxiety - Pt remains unable to tolerate a family meeting at this time - having delusions of reference with numerous individuals, including parents, which would likely negatively contribute to the meeting if done prematurely 04/26 -The patient's paranoid delusions were in evidence early this morning, but they appear to have been improving over the course of the day. It is possible that the patient is taking a "flight into health" within the context of the fact that we have had several discharges today. However, he is convincing as he describes the delusional beliefs that he had been voicing at admission and even as recently as this morning now in terms that reference to these in the past tense. He acknowledges ongoing paranoid believes, but says that he feels that some of the believes that he had held earlier or not based in reality and he is now feeling much safer. -Patient indicates that he is tolerating risperidone well. We will increase the patient's dose of risperidone to a dose of 1 mg in the morning and 2 mg at bedtime. The patient has been advised accordingly. - Inventory Assets Strengths: intelligent, family support Needs: increase insight into condition, follow up providers. Risk Factors Assessment Male: Yes : Yes Do You Have Access To A Gun?: No Mental Health Diagnoses: Yes Previous Attempt: No Protective Factors Assessment : No Responsible for Young Children: No Employed: No Supportive Family: Yes Interval History Identifying Information 19-year-old male admited on 302 commitment for violet and paranoia. Chief Complaint "I got pretty confused.". Review of Systems Sleep Information Total Hours of Sleep: 6.5 Sleep Comments: pt on q-15 minute checks Meal Information Percent Meal Consumed - Breakfast: 100 Percent Meal Consumed - Lunch: 100 Percent Meal Consumed - Dinner: 90 Nutrition Comment: per meal record Subjective Subjective Patient was seen & assessed and interval progress reviewed with treatment team. I met individually with the patient in order to assess his current mental status, evaluate his response to treatment, make any necessary changes in the patient's treatment regimen and coordination with the patient, and dressed questions, issues and concerns that may arise. The patient began by describing the circumstances under which he had been admitted. He tells me that for the past several weeks, or perhaps as long as a month or 2 ago, he has been having what he refers to as "paranoid" thoughts. The intensity and frequency of these thoughts has been progressing over time and in the week prior to the admission he said that he was so paranoid that he believe that any moment somebody or something was about to kill him "or worse." The patient also said that he saw conspiracies and just about everything that happened around him. He said that, for example, a car drove past his house he was convinced that it was possibly a hit man or someone else who was coming to kill him. He began to be suspicious of his housemates. Within that context, he isolated himself to his room and often locked or barricaded the door. He also said that at times he thought he could hear people talking about him through the close doors and, on one occasion, on a television set that was playing in another room. He said that he was so frightened that for the 2 nights prior to the admission he had not slept at all and was so vigilant that he forced himself to stay awake at night for both nights and did not sleep at all during this period. Further, the patient said that he was not eating, nor was he drinking fluids during this period of time, evidently because of his suspicions.. Prior to that, he admits that he had been eating poorly and, for example, might go to a fast food restaurant and get 1 meal for the entire day. Probably contributing to the clinical picture is the fact that the patient acknowledges that he had been using a amphetamine dextroamphetamine 20 mg preparation that he had obtained from another student. He also acknowledges smoking large quantities of marijuana "day and night." Although he says that he does not derive much pleasure from the use of alcohol, he also says that he feels certain that he drinks more than the average [employer] student and estimates his alcohol use amount is consisting of between 6 and 12 alcoholic beverages, including shots of distilled spirits, per drinking episode, always on , Fridays, and Saturdays, and then usually "1 or 2 other days, like if it was somebody's birthday or someone felt like partying." Patient recalls initially believing that the staff on [address] were all in some sort of conspiracy and only pretending to be doctors and nurses and social workers when he first arrived. He believed that the team, and possibly some the other patients, were part of a conspiracy to kill him or otherwise cause him serious physical harm. The patient describes feeling absolutely convinced that he was being sent "upstairs" from the emergency department in order to be executed and notes that he was "terrified." Within this context, the patient said that he tried to mimic those other patients who he thought were "the favorites" on the unit so that he would be in less danger. Eventually, and especially today, he says that he has dropped many of these fears and has come to realize that the staff members who they say they are and are interested in helping him. He acknowledged that he is continuing to have thoughts that various people might be trying to harm him, but he says that in general these thoughts have been dissipating fairly quickly. He also reports that he has started sleeping very well and has had his appetite returned so that he is now eating full meals. Patient notes that he is eager to be discharged, but does not want to be discharged until we feel he is ready. He says that he is looking forward to getting back together with his girlfriend and, he also notes that his plan at this point is to return to [place], [place] in order to live with his parents and younger brother. He plans to take a medical withdrawal for the semester from [employer]. Physical Exam Psychiatric Orientation: alert and oriented x 3 Apperance: appropriately dressed Well below ideal body weight Eye Contact: good eye contact Motor Behavior: steady gait and station Speech: normal rate/rhythm/volume of speech Affect: + constricted affect (With occasional nervous laughter.) "Sad because I am here, but not depressed." Thought Process: + tangential thought process Thought Content: + delusions (Apparently resolving) and + derealization Suicidal Thoughts: denies suicidal thoughts Homicidal Thoughts: denies homicidal thoughts Hallucinations: no auditory hallucinations Patient does report that he has "heard" his name mentioned over the television at home prior to admission, and also feels that he may have heard people talking about him "in the hallway". These experiences may be illusions, rather than hallucinations. Cognition: recent memory grossly intact and language grossly intact Estimated Intelligence: + above average estimated intelligence Insight: + limited insight Judgement: + fair judgement Vital Signs (Past 24 Hours) Last Vital Signs Temp 36.5 C 04/26/20 06:00 Pulse 98 H 04/26/20 06:28 Resp 16 04/26/20 06:00 BP 100/66 04/26/20 06:28 Pulse Ox 98 04/20/20 15:28 Results & Data ([facility]) Current Inpatient Medications Current Inpatient Medications: Current Inpatient Medications Acetaminophen (Acetaminophen 325 Mg Tab) 650 mg PO Q4H PRN PRN Reason: Headache or Minor Fever Stop: 05/20/20 14:12 Al Hydrox/Mg Hydrox/Simethicone (Aluminum/Magnesium Susp 30 Ml Udc) 30 ml PO Q4H PRN PRN Reason: GI Upset Stop: 05/20/20 14:12 Benztropine Mesylate (Benztropine Mesylate 1 Mg Tab) 1 mg PO TID PRN PRN Reason: Muscle Spasm Stop: 05/21/20 10:29 Bismuth Subsalicylate (Bismuth Subsalicylate Liqd 236 Ml) 15 ml PO PRN PRN PRN Reason: Loose Stool Stop: 05/20/20 14:12 Hydroxyzine HCl (Hydroxyzine Hcl 25 Mg Tab) 50 mg PO HSZ PRN PRN Reason: Insomnia Stop: 05/20/20 14:12 Last Admin: 04/23/20 02:59 Dose: 50 mg Documented by: Hydroxyzine HCl (Hydroxyzine Hcl 25 Mg Tab) 25 mg PO Q4H PRN PRN Reason: Anxiety Stop: 05/20/20 14:12 Last Admin: 04/23/20 22:52 Dose: 25 mg Documented by: Lorazepam (Lorazepam 1 Mg Tab) 1 mg PO Q6 PRN PRN Reason: Anxiety Stop: 05/20/20 14:16 Last Admin: 04/26/20 13:28 Dose: 1 mg Documented by: Magnesium Hydroxide (Magnesium Hydroxide Susp 30 Ml Udc) 30 ml PO DAILY PRN PRN Reason: Constipation Stop: 05/20/20 14:12 Risperidone (Risperidone Odt 1mg) 1 mg PO Q6 PRN PRN Reason: Agitation Stop: 05/20/20 14:15 Last Admin: 04/26/20 15:02 Dose: 1 mg Documented by: Risperidone (Risperidone 1 Mg Tablet) 1 mg PO QAM COY Stop: 05/27/20 08:59 Risperidone (Risperidone 2 Mg Tablet) 2 mg PO HS COY Stop: 05/26/20 21:59 Sodium Chloride (Sodium Chloride 0.65% Na Soln 45 Ml (Moosic)) 1 - 2 sprays NA PRN PRN PRN Reason: Nasal Dryness/Congestion Stop: 05/20/20 14:12 Mental Health & Subst Abuse Tx Therapist Name of Therapist: [employer] Name of [employer] Driver: None Post Discharge Appointments Primary Care Physician Name Of Family Doctor: None in this area
[2020-04-26] MEDS: risperiDONE 2 MG TABLET PO SCH (21:17)
--- NOTE | 2020-04-27 07:57 | Psychiatric Progress Note ---
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 He does use MJ but recent use seems significantly decreased compared to prior to episode which would argue against substance induced psychosis and there is a family history of bipolar disorder. Mood has been improving and is less expansive and attendance to ADLs is improved; however, patient reports ongoing delusions and paranoia and admits natividad t he has been minimizing these symptoms but is now ready to be open with staff. He does feel that risperidone has been helpful, so will continue encouraging use of prn and titrate scheduled dosing as indicated. Patient has been better able to tolerate phone conversations and seems to be more engaged with his peers with less evidence of delusions/paranoia. A family meeting has been scheduled to discuss safety and discharge planning. Patient remains at acute risk of harm to himself and others due to the severity of paranoia and delusional thinking. (1) Bipolar 1 disorder: 04/21/20--The patient was admitted to the [facility] ([facility] mental health unit) on q15 min checks (behavioral with suicide precautions) for safety. The patient will participate in group, recreational, and milieu therapies and will be offered additional individual and family sessions as clinically appropriate. Risks/benefits/alternatives reviewed as able re: Risperdal M tab 1 mg po qhs with additional prn. discussion included but was not limited to need for metabolic monitoring and risks of TD. Metabolic labs in am. 04/22/20--increase Risperdal M tab to 0.5 mg po qam and 1 mg po qhs. It has been quite difficult to get patient to accept meds, but prefer trial of bid given tachy/low diastolic bp (likely dehydration). If he would refuse medications I do feel he is at significant risk of or serious injury due to his mental illness interfering with sleep/eating/safety within 30 days so I would support medications over objection. --sleep and expansiveness improving, remains paranoid around food and blood draw. 04/23 -reviewed FLP and FG for baseline on an atypical antipsychotic, all values within normal limits. Continue risperidone 0.5 every morning and 1 mg at bedtime, plus as needed medication. -Mood is stabilizing, patient reporting less paranoia, insight improved. He indicates willingness to sign in voluntarily, will revisit again tomorrow. -Schedule family meeting with parents, [facility] with [facility] as he indicates he will need to medically withdrawal. He will need aftercare in [place]. -Continue to encourage group attendance of participation, and start to work on discharge planning/safety plan. 04/24 - Continue risperidone 0.5mg qAM, but titrating evening dose to 1.5mg - pt continues to have prn dosing available. - Pt was hopeful to schedule a family meeting with parents, but has been decompensating after casual phone conversations - will pursue a family meeting when patient is appropriate to participate - Pt indicates tentative plan to return home, and was encouraged to consider a partial hospitalization program if one is available - pt indicated he would be interested in this 04/25 - Patient remains very delusional and paranoid, admitting that he has been minimizing the delusions and is now ready to be "open and honest about everything" - suspicious of medications, but still agreeing to utilize both scheduled and prn doses. - Risperidone was titrated last evening - consider further titration as indicated. Pt is still requiring prn medications of disorganized thoughts and anxiety - Pt remains unable to tolerate a family meeting at this time - having delusions of reference with numerous individuals, including parents, which would likely negatively contribute to the meeting if done prematurely 04/26 -The patient's paranoid delusions were in evidence early this morning, but they appear to have been improving over the course of the day. It is possible that the patient is taking a "flight into health" within the context of the fact that we have had several discharges today. However, he is convincing as he describes the delusional beliefs that he had been voicing at admission and even as recently as this morning now in terms that reference to these in the past tense. He acknowledges ongoing paranoid believes, but says that he feels that some of the believes that he had held earlier or not based in reality and he is now feeling much safer. -Patient indicates that he is tolerating risperidone well. We will increase the patient's dose of risperidone to a dose of 1 mg in the morning and 2 mg at bedtime. The patient has been advised accordingly. 3/13 - Pt continues to struggle with challenging "the seed thought" that "someone is going to hurt me" and that he has information that could be detrimental to society. He is proud of his progress with challenging the numerous other distortions, and admittedly states that he is less focused on the above thought than he was on admission. - I do agree with the assessment from yesterday, and there is still concern that patient may be experiencing a "flight into health", as his thoughts do still seem somewhat disorganized. Mood has been stable, though possibly inflated by the patient who rated his mood an 8/10 last evening - Continue current doses of risperidone - additional titration as indicated/tolerated - Family meeting with parents scheduled for tomorrow morning; will need to complete an intake phone call next week to determine if he is a candidate for an IOP back in [place]. Inventory Assets Strengths: intelligent, family support Needs: increase insight into condition, follow up providers. Risk Factors Assessment Male: Yes : Yes Do You Have Access To A Gun?: No Mental Health Diagnoses: Yes Previous Attempt: No Protective Factors Assessment : No Responsible for Young Children: No Employed: No Supportive Family: Yes Interval History Identifying Information 19-year-old male admited on 302 commitment for violet and paranoia. Chief Complaint "Um, I really do think I'm doing better." Review of Systems Notes Constitutional: denied Cardiovascular: denied Respiratory: denied Gastrointestinal: denied Neurological: denied Psychiatric: denies symptoms other than stated above Total of at least 10 systems reviewed, pertinent positives as above and in HPI. Sleep Information Total Hours of Sleep: 6.5 Sleep Comments: pt on q-15 minute checks Meal Information Percent Meal Consumed - Breakfast: 100 Percent Meal Consumed - Lunch: 100 Percent Meal Consumed - Dinner: 90 Nutrition Comment: per meal record Subjective Subjective Patient was seen & assessed and interval progress reviewed with nursing and social work. Staff report the patient has been much more engaged with peers after the discharge of a patient yesterday who was a behavioral challenge, and was unfortunately incorporated into Uriel's delusions. Pt reportedly had a positive conversation via phone with friends and has been a bit brighter in his affect. He did rate his mood an 8/10 and "happy" last evening. Pt was seen today to assess progress since admission. The patient states "I really do think I'm doing better." He continues to clearly verbalize that he is willing to follow recommendations from staff, but is increasingly hopeful for discharge in the next couple days (admittedly sooner than treatment team had felt to be appropriate). Pt states he has been attending groups and "binge reading" his patient work-book, with a particular focus on the section on cognitive distortions. Pt states that he has been doing well processing his delusions; however, the "one seed thought" continues to be present. Pt shares that the thought is that he has information that would be detrimental to society if release, but also that someone is trying to hurt him. Pt states that this thought in particular has been difficult to challenge, and that all of his other distorted thoughts stemmed from this. Pt did admit - "but I don't think I'm as worried about it. It's either not true, and then, who cares. Or it is true, but not a big deal, because no one has hurt me yet, I'm still here. So who cares." Pt does seem to be somewhat less fixated on these delusional thoughts, but may also be minimizing the distress he is experiencing from these lingering delusions. Pt states he is tolerating risperidone and has scheduled a meeting with his parents to discuss discharge planning. Pt remains agreeable for an IOP option, if accepted. He denies SI, hallucinations, or other obvious symptoms of psychosis. He was encouraged to continue to reach out to staff with needs or to processing any distressing thoughts. Physical Exam Psychiatric Orientation: alert, oriented x 3 and cooperative (and pleasant) Apperance: appropriately dressed, appropriately groomed and appeared stated age Eye Contact: good eye contact Motor Behavior: steady gait and station and no abnormal motor movements Speech: normal rate/rhythm/volume of speech Affect: + constricted affect (nervous laughter, occasional appropriate smiling) Mood: + anxious mood Thought Process: goal directed thought process and + circumstantial thought process Thought Content: + delusions and + derealization admits he is still struggling with a "seed thought" that he has classified information and someone is trying to hurt him; however, less fixated on this idea Suicidal Thoughts: denies suicidal thoughts and denies suicidal intent Homicidal Thoughts: denies homicidal thoughts Hallucinations: no auditory hallucinations and no visual hallucinations Cognition: attention grossly intact and language grossly intact Estimated Intelligence: consistent with education level Insight: + limited insight (though demonstrating much improvement when compared to admission) Judgement: + fair judgement Vital Signs (Past 24 Hours) Last Vital Signs Temp 36.5 C 04/27/20 06:56 Pulse 85 04/27/20 06:57 Resp 16 04/27/20 06:56 BP 91/60 L 04/27/20 06:57 Pulse Ox 98 04/20/20 15:28 Results & Data ([facility]) Current Inpatient Medications Current Inpatient Medications: Current Inpatient Medications Acetaminophen (Acetaminophen 325 Mg Tab) 650 mg PO Q4H PRN PRN Reason: Headache or Minor Fever Stop: 05/20/20 14:12 Al Hydrox/Mg Hydrox/Simethicone (Aluminum/Magnesium Susp 30 Ml Udc) 30 ml PO Q4H PRN PRN Reason: GI Upset Stop: 05/20/20 14:12 Benztropine Mesylate (Benztropine Mesylate 1 Mg Tab) 1 mg PO TID PRN PRN Reason: Muscle Spasm Stop: 05/21/20 10:29 Bismuth Subsalicylate (Bismuth Subsalicylate Liqd 236 Ml) 15 ml PO PRN PRN PRN Reason: Loose Stool Stop: 05/20/20 14:12 Hydroxyzine HCl (Hydroxyzine Hcl 25 Mg Tab) 50 mg PO HSZ PRN PRN Reason: Insomnia Stop: 05/20/20 14:12 Last Admin: 04/23/20 02:59 Dose: 50 mg Documented by: Hydroxyzine HCl (Hydroxyzine Hcl 25 Mg Tab) 25 mg PO Q4H PRN PRN Reason: Anxiety Stop: 05/20/20 14:12 Last Admin: 04/23/20 22:52 Dose: 25 mg Documented by: Lorazepam (Lorazepam 1 Mg Tab) 1 mg PO Q6 PRN PRN Reason: Anxiety Stop: 05/20/20 14:16 Last Admin: 04/26/20 13:28 Dose: 1 mg Documented by: Magnesium Hydroxide (Magnesium Hydroxide Susp 30 Ml Udc) 30 ml PO DAILY PRN PRN Reason: Constipation Stop: 05/20/20 14:12 Risperidone (Risperidone Odt 1mg) 1 mg PO Q6 PRN PRN Reason: Agitation Stop: 05/20/20 14:15 Last Admin: 04/26/20 15:02 Dose: 1 mg Documented by: Risperidone (Risperidone 1 Mg Tablet) 1 mg PO QAM COY Stop: 05/27/20 08:59 Risperidone (Risperidone 2 Mg Tablet) 2 mg PO HS COY Stop: 05/26/20 21:59 Last Admin: 04/26/20 21:17 Dose: 2 mg Documented by: Sodium Chloride (Sodium Chloride 0.65% Na Soln 45 Ml ([place])) 1 - 2 sprays NA PRN PRN PRN Reason: Nasal Dryness/Congestion Stop: 05/20/20 14:12 Mental Health & Subst Abuse Tx Therapist Name of Therapist: [facility] Manager Audio Name of Manager Audio: None Post Discharge Appointments Primary Care Physician Name Of Family Doctor: None in this area
[2020-04-27] MEDS: risperiDONE 1 MG TABLET PO SCH (08:45)
[2020-04-27] MEDS: risperiDONE 2 MG TABLET PO SCH (21:07)
--- NOTE | 2020-04-28 08:11 | Psychiatric Progress Note ---
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 He does use MJ but recent use seems significantly decreased compared to prior to episode which would argue against substance induced psychosis and there is a family history of bipolar disorder. Mood has been improving and is less expansive and attendance to ADLs is improved; however, patient reports ongoing delusions and paranoia and admits natividad t he has been minimizing these symptoms but is now ready to be open with staff. He does feel that risperidone has been helpful, so will continue encouraging use of prn and titrate scheduled dosing as indicated. Patient has been better able to tolerate phone conversations and seems to be more engaged with his peers with less evidence of delusions/paranoia. A family meeting has been scheduled to discuss safety and discharge planning. Patient remains at acute risk of harm to himself and others due to the severity of paranoia and delusional thinking. (1) Bipolar 1 disorder: 04/21/20--The patient was admitted to the [facility] ([facility]) on q15 min checks (behavioral with suicide precautions) for safety. The patient will participate in group, recreational, and milieu therapies and will be offered additional individual and family sessions as clinically appropriate. Risks/benefits/alternatives reviewed as able re: Risperdal M tab 1 mg po qhs with additional prn. discussion included but was not limited to need for metabolic monitoring and risks of TD. Metabolic labs in am. 04/22/20--increase Risperdal M tab to 0.5 mg po qam and 1 mg po qhs. It has been quite difficult to get patient to accept meds, but prefer trial of bid given tachy/low diastolic bp (likely dehydration). If he would refuse medications I do feel he is at significant risk of or serious injury due to his mental illness interfering with sleep/eating/safety within 30 days so I would support medications over objection. --sleep and expansiveness improving, remains paranoid around food and blood draw. 04/23 -reviewed FLP and FG for baseline on an atypical antipsychotic, all values within normal limits. Continue risperidone 0.5 every morning and 1 mg at bedtime, plus as needed medication. -Mood is stabilizing, patient reporting less paranoia, insight improved. He indicates willingness to sign in voluntarily, will revisit again tomorrow. -Schedule family meeting with parents, [facility] with [facility] as he indicates he will need to medically withdrawal. He will need aftercare in [place]. -Continue to encourage group attendance of participation, and start to work on discharge planning/safety plan. 04/24 - Continue risperidone 0.5mg qAM, but titrating evening dose to 1.5mg - pt continues to have prn dosing available. - Pt was hopeful to schedule a family meeting with parents, but has been decompensating after casual phone conversations - will pursue a family meeting when patient is appropriate to participate - Pt indicates tentative plan to return home, and was encouraged to consider a partial hospitalization program if one is available - pt indicated he would be interested in this 04/25 - Patient remains very delusional and paranoid, admitting that he has been minimizing the delusions and is now ready to be "open and honest about everything" - suspicious of medications, but still agreeing to utilize both scheduled and prn doses. - Risperidone was titrated last evening - consider further titration as indicated. Pt is still requiring prn medications of disorganized thoughts and anxiety - Pt remains unable to tolerate a family meeting at this time - having delusions of reference with numerous individuals, including parents, which would likely negatively contribute to the meeting if done prematurely 04/26 -The patient's paranoid delusions were in evidence early this morning, but they appear to have been improving over the course of the day. It is possible that the patient is taking a "flight into health" within the context of the fact that we have had several discharges today. However, he is convincing as he describes the delusional beliefs that he had been voicing at admission and even as recently as this morning now in terms that reference to these in the past tense. He acknowledges ongoing paranoid believes, but says that he feels that some of the believes that he had held earlier or not based in reality and he is now feeling much safer. -Patient indicates that he is tolerating risperidone well. We will increase the patient's dose of risperidone to a dose of 1 mg in the morning and 2 mg at bedtime. The patient has been advised accordingly. 3/13 - Pt continues to struggle with challenging "the seed thought" that "someone is going to hurt me" and that he has information that could be detrimental to society. He is proud of his progress with challenging the numerous other distortions, and admittedly states that he is less focused on the above thought than he was on admission. - I do agree with the assessment from yesterday, and there is still concern that patient may be experiencing a "flight into health", as his thoughts do still seem somewhat disorganized. Mood has been stable, though possibly inflated by the patient who rated his mood an 8/ last evening - Continue current doses of risperidone - additional titration as indicated/tolerated - Family meeting with parents scheduled for tomorrow morning; will need to complete an intake phone call next week to determine if he is a candidate for an IOP back in [place]. 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 Pt is mimicking reports of peers and fixated on how his thoughts and actions will affect them. Poor insight regarding the severity of his illness, need for hospitalization, and medication recommendations. - Continue current medication regimen at this time. Recommendations for titration of risperidone or cross-taper to paliperidone were discussed. Pt repeatedly offered an argument to reduce his dose, feeling with "time and talking to people" he could eliminate his symptoms without medications. - Family meeting with parents today was reportedly superficial, but positive in general - Attempt to schedule intake phone call with PHP option in [place] Inventory Assets Strengths: intelligent, family support Needs: increase insight into condition, follow up providers. Risk Factors Assessment Male: Yes : Yes Do You Have Access To A Gun?: No Mental Health Diagnoses: Yes Previous Attempt: No Protective Factors Assessment : No Responsible for Young Children: No Employed: No Supportive Family: Yes Interval History Identifying Information 19-year-old male admited on 302 commitment for violet and paranoia. Chief Complaint "I'm doing fine. I think we just need to communicate to my parents that Uriel's an adult and he can make his own decisions." Review of Systems Notes Constitutional: denied Cardiovascular: denied Respiratory: denied Gastrointestinal: denied Neurological: denied Psychiatric: denies symptoms other than stated above Total of at least 10 systems reviewed, pertinent positives as above and in HPI. Sleep Information Total Hours of Sleep: 5 Sleep Comments: pt on q-15 minute checks Meal Information Percent Meal Consumed - Breakfast: 100 Percent Meal Consumed - Lunch: 90 Percent Meal Consumed - Dinner: 100 Nutrition Comment: per meal record Subjective Subjective Patient was seen & assessed and interval progress reviewed with nursing and social work. Staff report the patient has been continuing attempts to combat distorted and delusional thinking. He reportedly required significant encouragement to take his HS dose of risperidone, telling staff he didn't need an antipsychotic, just an anxiolytic. Pt did share with staff that he was nervous to interact with peers due to feeling that his disorganized thoughts would negatively affect them. He was seen today prior to his family meeting to discuss progress since admission. The patient shares that he feels he is doing "fine" and discusses his goals for the meeting. Pt was very focused on staff supporting him in telling his parents that "Uriel's an adult and he can make his own decisions." Pt then began discussing medications, stating that he can decide if a medication is helping him or if he wants to switch medications. Pt was asked additional questions about this, as it was passed along that patient was overwhelmed last evening about the idea of being on an antipsychotic medication. Pt is now stating "I'm fine taking Risperdal fdc, or as long as I have to be on it, but I think maybe 0.5 in the morning and 0.5 at night." This provider attempted to process with the patient that this is a significant dose reduction, and that this is concerning given that he is continuing to reports of struggling with reality testing. This provider did state that recommendations would be further titrate his medication until symptoms are resolved - offering reassurance that dose necessary for acute stabilization of symptoms is not always the necessary dose to maintain symptoms once stabilized. Pt was also offered to consider switching to an alternative agent if his concerns were related to side effects. We reviewed the various uses for antipsychotic medications, and specifically reiterated patient's own reports that he feels the risperidone is helpful. This provider attempted to encourage patient to express his concerns so that they could be addressed - he continued to request lower medication doses. Ultimately, we agreed to continue his current dose and revisit the conversation. Per staff's interactions throughout the day, patient continues to be delusional and questions if he is the only real patient here. Fortunately, he continues to reach out to staff to process these thoughts and has been open when discussing his emotions. Pt denied other needs or concerns today. Physical Exam Psychiatric Orientation: alert, oriented x 3 and + guarded (superficially cooperative, but also somewhat argumentative at times) Apperance: appropriately dressed, appropriately groomed and appeared stated age Very slender, underweight Eye Contact: good eye contact Motor Behavior: steady gait and station and no abnormal motor movements Speech: normal rate/rhythm/volume of speech Affect: + anxious affect and + constricted affect (nervously laughing at times, occasional irritability when discussing meds) Mood: + depressed mood and + anxious mood Thought Process: + perseveration; + thought process not linear or logical Thought Content: + preoccupation, + paranoid, + delusions and + persecution afraid to interact with peers as he reported fear that they would also develop his delusional thoughts and didn't want to place extra stress on them Suicidal Thoughts: denies suicidal thoughts and denies suicidal intent Homicidal Thoughts: denies homicidal thoughts Hallucinations: no auditory hallucinations and no visual hallucinations Cognition: attention grossly intact and language grossly intact Insight: + impaired insight Judgement: + impaired judgement Vital Signs (Past 24 Hours) Last Vital Signs Temp 36.4 C L 04/28/20 06:49 Pulse 105 H 04/28/20 06:49 Resp 16 04/28/20 06:49 BP 112/75 04/28/20 06:50 Pulse Ox 98 04/20/20 15:28 Results & Data ([facility]) Current Inpatient Medications Current Inpatient Medications: Current Inpatient Medications Acetaminophen (Acetaminophen 325 Mg Tab) 650 mg PO Q4H PRN PRN Reason: Headache or Minor Fever Stop: 05/20/20 14:12 Al Hydrox/Mg Hydrox/Simethicone (Aluminum/Magnesium Susp 30 Ml Udc) 30 ml PO Q4H PRN PRN Reason: GI Upset Stop: 05/20/20 14:12 Benztropine Mesylate (Benztropine Mesylate 1 Mg Tab) 1 mg PO TID PRN PRN Reason: Muscle Spasm Stop: 05/21/20 10:29 Bismuth Subsalicylate (Bismuth Subsalicylate Liqd 236 Ml) 15 ml PO PRN PRN PRN Reason: Loose Stool Stop: 05/20/20 14:12 Hydroxyzine HCl (Hydroxyzine Hcl 25 Mg Tab) 50 mg PO HSZ PRN PRN Reason: Insomnia Stop: 05/20/20 14:12 Last Admin: 04/23/20 02:59 Dose: 50 mg Documented by: Hydroxyzine HCl (Hydroxyzine Hcl 25 Mg Tab) 25 mg PO Q4H PRN PRN Reason: Anxiety Stop: 05/20/20 14:12 Last Admin: 04/23/20 22:52 Dose: 25 mg Documented by: Lorazepam (Lorazepam 1 Mg Tab) 1 mg PO Q6 PRN PRN Reason: Anxiety Stop: 05/20/20 14:16 Last Admin: 04/26/20 13:28 Dose: 1 mg Documented by: Magnesium Hydroxide (Magnesium Hydroxide Susp 30 Ml Udc) 30 ml PO DAILY PRN PRN Reason: Constipation Stop: 05/20/20 14:12 Risperidone (Risperidone Odt 1mg) 1 mg PO Q6 PRN PRN Reason: Agitation Stop: 05/20/20 14:15 Last Admin: 04/26/20 15:02 Dose: 1 mg Documented by: Risperidone (Risperidone 1 Mg Tablet) 1 mg PO QAM COY Stop: 05/27/20 08:59 Last Admin: 04/27/20 08:45 Dose: 1 mg Documented by: Risperidone (Risperidone 2 Mg Tablet) 2 mg PO HS COY Stop: 05/26/20 21:59 Last Admin: 04/27/20 21:07 Dose: 2 mg Documented by: Sodium Chloride (Sodium Chloride 0.65% Na Soln 45 Ml ([place])) 1 - 2 sprays NA PRN PRN PRN Reason: Nasal Dryness/Congestion Stop: 05/20/20 14:12 Mental Health & Subst Abuse Tx Therapist Name of Therapist: [facility] Operations [employer]anner Name of Operations Planner: [facility] Phone Number for Operations Planner: [phone] Case Management Appointment Comment: Will follow up with a phone call Post Discharge Appointments Primary Care Physician Name Of Family Doctor: None in this area Contact Information Discharge Discharge Address: [id number] [place] [id number]
[2020-04-28] MEDS: risperiDONE 1 MG TABLET PO SCH (09:56)
[2020-04-28] MEDS: risperiDONE 2 MG TABLET PO SCH (21:33)
[2020-04-29] MEDS: hydrOXYzine HCl 25 MG TAB PO PRN (00:05)
[2020-04-29] MEDS: LORazepam 1 MG TAB PO PRN (00:40)
[2020-04-29] MEDS: risperiDONE 1 MG TABLET PO SCH (09:30)
--- NOTE | 2020-04-29 10:57 | Psychiatric Progress Note ---
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 He does use MJ but recent use seems significantly decreased compared to prior to episode which would argue against substance induced psychosis and there is a family history of bipolar disorder. Mood has been improving and is less expansive and attendance to ADLs is improved; however, patient reports ongoing delusions and paranoia and admits natividad t he has been minimizing these symptoms but is now ready to be open with staff. He does feel that risperidone has been helpful, so will continue encouraging use of prn and titrate scheduled dosing as indicated. Ongoing inpatient treatment is medically necessary due to continued psychosis with limited insight. (1) Bipolar 1 disorder: 04/21/20--The patient was admitted to the [facility] on q15 min checks (behavioral with suicide precautions) for safety. The patient will participate in group, recreational, and milieu therapies and will be offered additional individual and family sessions as clinically appropriate. Risks/benefits/alternatives reviewed as able re: Risperdal M tab 1 mg po qhs with additional prn. discussion included but was not limited to need for metabolic monitoring and risks of TD. Metabolic labs in am. 04/22/20--increase Risperdal M tab to 0.5 mg po qam and 1 mg po qhs. It has been quite difficult to get patient to accept meds, but prefer trial of bid given tachy/low diastolic bp (likely dehydration). If he would refuse medications I do feel he is at significant risk of or serious injury due to his mental illness interfering with sleep/eating/safety within 30 days so I would support medications over objection. --sleep and expansiveness improving, remains paranoid around food and blood draw. 04/23 -reviewed FLP and FG for baseline on an atypical antipsychotic, all values within normal limits. Continue risperidone 0.5 every morning and 1 mg at bedtime, plus as needed medication. -Mood is stabilizing, patient reporting less paranoia, insight improved. He indicates willingness to sign in voluntarily, will revisit again tomorrow. -Schedule family meeting with parents, coordinate with [facility] [employer] as he indicates he will need to medically withdrawal. He will need aftercare in [place]. -Continue to encourage group attendance of participation, and start to work on d ischarge planning/safety plan. 04/24 - Continue risperidone 0.5mg qAM, but titrating evening dose to 1.5mg - pt continues to have prn dosing available. - Pt was hopeful to schedule a family meeting with parents, but has been decompensating after casual phone conversations - will pursue a family meeting when patient is appropriate to participate - Pt indicates tentative plan to return home, and was encouraged to consider a partial hospitalization program if one is available - pt indicated he would be interested in this 04/25 - Patient remains very delusional and paranoid, admitting that he has been minimizing the delusions and is now ready to be "open and honest about everything" - suspicious of medications, but still agreeing to utilize both scheduled and prn doses. - Risperidone was titrated last evening - consider further titration as indicated. Pt is still requiring prn medications of disorganized thoughts and anxiety - Pt remains unable to tolerate a family meeting at this time - having delusions of reference with numerous individuals, including parents, which would likely negatively contribute to the meeting if done prematurely 04/26 -The patient's paranoid delusions were in evidence early this morning, but they appear to have been improving over the course of the day. It is possible that the patient is taking a "flight into health" within the context of the fact that we have had several discharges today. However, he is convincing as he describes the delusional beliefs that he had been voicing at admission and even as recently as this morning now in terms that reference to these in the past tense. He acknowledges ongoing paranoid believes, but says that he feels that some of the believes that he had held earlier or not based in reality and he is now feeling much safer. -Patient indicates that he is tolerating risperidone well. We will increase the patient's dose of risperidone to a dose of 1 mg in the morning and 2 mg at bedtime. The patient has been advised accordingly. 04/27 - Pt continues to struggle with challenging "the seed thought" that "someone is going to hurt me" and that he has information that could be detrimental to society. He is proud of his progress with challenging the numerous other distortions, and admittedly states that he is less focused on the above thought than he was on admission. - I do agree with the assessment from yesterday, and there is still concern that patient may be experiencing a "flight into health", as his thoughts do still seem somewhat disorganized. Mood has been stable, though possibly inflated by t he patient who rated his mood an 8/10 last evening - Continue current doses of risperidone - additional titration as indicated/tolerated - Family meeting with parents scheduled for tomorrow morning; will need to complete an intake phone call next week to determine if he is a candidate for an IOP back in [place]. 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 Pt is mimicking reports of peers and fixated on how his thoughts and actions will affect them. Poor insight regarding the severity of his illness, need for hospitalization, and medication recommendations. - Continue current medication regimen at this time. Recommendations for titration of risperidone or cross-taper to paliperidone were discussed. Pt repeatedly offered an argument to reduce his dose, feeling with "time and talking to people" he could eliminate his symptoms without medications. - Family meeting with parents today was reportedly superficial, but positive in general - Attempt to schedule intake phone call with PHP option in [place] 04/29 -Continue inpatient treatment, schedule intake with [facility] Inventory Assets Strengths: intelligent, family support Needs: increase insight into condition, follow up providers. Risk Factors Assessment Male: Yes : Yes Do You Have Access To A Gun?: No Mental Health Diagnoses: Yes Previous Attempt: No Protective Factors Assessment : No Responsible for Young Children: No Employed: No Supportive Family: Yes Interval History Identifying Information 19-year-old male admited on 302 commitment for violet and paranoia. Chief Complaint "Good, much better honestly". Review of Systems Sleep Information Total Hours of Sleep: 4.5 Sleep Comments: pt on q-15 minute checks Meal Information Percent Meal Consumed - Breakfast: 25 Percent Meal Consumed - Lunch: 100 Percent Meal Consumed - Dinner: 100 Nutrition Comment: per meal record Subjective Subjective Patient was seen & assessed and interval progress reviewed with treatment team. Staff report he has been more paranoid over the weekend, suspicious of medications and requiring significant staff encouragement to take them. He was very focused on discharge, telling staff that he did not need to be here anymore and wanted to go home with parents. He slept poorly overnight, was up in the middle of the night telling staff that he felt like he was going to "lose my mind," which he attributed to being in the hospital. He received hydroxyzine 50 mg and Ativan 1 mg. On my assessment, he states he believes he is doing much better, as he is able to reality test thoughts like "the government is coming after me, or people like me." He says he feels he is "learning how to deal with the thoughts myself instead of talking about them," is talking about that makes him feel worse and "sends me down a tunnel." He says he now thinks "it is more likely that I am just a normal person that no one would go after, and that you guys are just nurses trying to help me." He admits to poor sleep overnight, which he attributes to being anxious about being in the hospital, "cabin fever." He says he cannot stay here past tomorrow morning, and believes that his parents are coming to pick him up. He was strongly encouraged to focus on setting up the next stage of treatment (PHP), and wanted to know exactly when it would occur. Physical Exam Psychiatric Orientation: alert and cooperative (Partially, focused on discharge) Apperance: appropriately dressed and appeared stated age Thin, dressed in shorts and a T-shirt, seated in no acute distress Eye Contact: + fair eye contact Motor Behavior: steady gait and station and no abnormal motor movements Irritable tone Stable, irritable edge Mood: + irritable mood Thought Process: + perseveration (On leaving) Thought Content: + paranoid, + cognitive distortions and + persecution Suicidal Thoughts: denies suicidal thoughts Homicidal Thoughts: denies homicidal thoughts Hallucinations: no auditory hallucinations and no visual hallucinations Cognition: attention grossly intact and language grossly intact Insight: + limited insight Judgement: + limited judgement Vital Signs (Past 24 Hours) Last Vital Signs Temp 36.4 C L 04/29/20 06:51 Pulse 116 H 04/29/20 06:52 Resp 16 04/29/20 06:51 BP 106/63 04/29/20 06:52 Pulse Ox 98 04/20/20 15:28 Results & Data ([facility]) Current Inpatient Medications Current Inpatient Medications: Current Inpatient Medications Acetaminophen (Acetaminophen 325 Mg Tab) 650 mg PO Q4H PRN PRN Reason: Headache or Minor Fever Stop: 05/20/20 14:12 Al Hydrox/Mg Hydrox/Simethicone (Aluminum/Magnesium Susp 30 Ml Udc) 30 ml PO Q4H PRN PRN Reason: GI Upset Stop: 05/20/20 14:12 Benztropine Mesylate (Benztropine Mesylate 1 Mg Tab) 1 mg PO TID PRN PRN Reason: Muscle Spasm Stop: 05/21/20 10:29 Bismuth Subsalicylate (Bismuth Subsalicylate Liqd 236 Ml) 15 ml PO PRN PRN PRN Reason: Loose Stool Stop: 05/20/20 14:12 Hydroxyzine HCl (Hydroxyzine Hcl 25 Mg Tab) 50 mg PO HSZ PRN PRN Reason: Insomnia Stop: 05/20/20 14:12 Last Admin: 04/29/20 00:05 Dose: 50 mg Documented by: Hydroxyzine HCl (Hydroxyzine Hcl 25 Mg Tab) 25 mg PO Q4H PRN PRN Reason: Anxiety Stop: 05/20/20 14:12 Last Admin: 04/23/20 22:52 Dose: 25 mg Documented by: Lorazepam (Lorazepam 1 Mg Tab) 1 mg PO Q6 PRN PRN Reason: Anxiety Stop: 05/20/20 14:16 Last Admin: 04/29/20 00:40 Dose: 1 mg Documented by: Magnesium Hydroxide (Magnesium Hydroxide Susp 30 Ml Udc) 30 ml PO DAILY PRN PRN Reason: Constipation Stop: 05/20/20 14:12 Risperidone (Risperidone Odt 1mg) 1 mg PO Q6 PRN PRN Reason: Agitation Stop: 05/20/20 14:15 Last Admin: 04/26/20 15:02 Dose: 1 mg Documented by: Risperidone (Risperidone 1 Mg Tablet) 1 mg PO QAM COY Stop: 05/27/20 08:59 Last Admin: 04/29/20 09:30 Dose: 1 mg Documented by: Risperidone (Risperidone 2 Mg Tablet) 2 mg PO HS COY Stop: 05/26/20 21:59 Last Admin: 04/28/20 21:33 Dose: 2 mg Documented by: Sodium Chloride (Sodium Chloride 0.65% Na Soln 45 Ml ([place])) 1 - 2 sprays NA PRN PRN PRN Reason: Nasal Dryness/Congestion Stop: 05/20/20 14:12 Mental Health & Subst Abuse Tx Therapist Name of Therapist: . [facility] Name of [facility]: [facility] Phone Number for [facility]: [phone] Date of Appointment with [facility] Guide: 05/03/20 Time of Appointment with [facility] Guide: 11:00 a.m. Case Management Appointment Comment: Will call you to discuss school Post Discharge Appointments Primary Care Physician Name Of Family Doctor: . Contact Information Discharge Discharge Address: [address] [place] [address]
[2020-04-29] MEDS: risperiDONE 2 MG TABLET PO SCH (21:20)
[2020-04-30] MEDS: risperiDONE 1 MG TABLET PO SCH (09:09)
--- NOTE | 2020-04-30 10:29 | Psychiatric Progress Note ---
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 He does use MJ but recent use seems significantly decreased compared to prior to episode which would argue against substance induced psychosis and there is a family history of bipolar disorder. Mood has been improving and is less expansive and attendance to ADLs is improved; however, patient reports ongoing delusions and paranoia and admits natividad t he has been minimizing these symptoms but is now ready to be open with staff. He does feel that risperidone has been helpful, so will continue encouraging use of prn and titrate scheduled dosing as indicated. Ongoing inpatient treatment is medically necessary due to continued psychosis with limited insight. (1) Bipolar 1 disorder: 04/21/20--The patient was admitted to the [facility] ([facility]) on q15 min checks (behavioral with suicide precautions) for safety. The patient will participate in group, recreational, and milieu therapies and will be offered additional individual and family sessions as clinically appropriate. Risks/benefits/alternatives reviewed as able re: Risperdal M tab 1 mg po qhs with additional prn. discussion included but was not limited to need for metabolic monitoring and risks of TD. Metabolic labs in am. 04/22/20--increase Risperdal M tab to 0.5 mg po qam and 1 mg po qhs. It has been quite difficult to get patient to accept meds, but prefer trial of bid given tachy/low diastolic bp (likely dehydration). If he would refuse medications I do feel he is at significant risk of or serious injury due to his mental illness interfering with sleep/eating/safety within 30 days so I would support medications over objection. --sleep and expansiveness improving, remains paranoid around food and blood draw. 04/23 -reviewed FLP and FG for baseline on an atypical antipsychotic, all values within normal limits. Continue risperidone 0.5 every morning and 1 mg at bedtime, plus as needed medication. -Mood is stabilizing, patient reporting less paranoia, insight improved. He indicates willingness to sign in voluntarily, will revisit again tomorrow. -Schedule family meeting with parents, coordinate with [facility] [employer] as he indicates he will need to medically withdrawal. He will need aftercare in [place]. -Continue to encourage group attendance of participation, and start to work on d ischarge planning/safety plan. 04/24 - Continue risperidone 0.5mg qAM, but titrating evening dose to 1.5mg - pt continues to have prn dosing available. - Pt was hopeful to schedule a family meeting with parents, but has been decompensating after casual phone conversations - will pursue a family meeting when patient is appropriate to participate - Pt indicates tentative plan to return home, and was encouraged to consider a partial hospitalization program if one is available - pt indicated he would be interested in this 04/25 - Patient remains very delusional and paranoid, admitting that he has been minimizing the delusions and is now ready to be "open and honest about everything" - suspicious of medications, but still agreeing to utilize both scheduled and prn doses. - Risperidone was titrated last evening - consider further titration as indicated. Pt is still requiring prn medications of disorganized thoughts and anxiety - Pt remains unable to tolerate a family meeting at this time - having delusions of reference with numerous individuals, including parents, which would likely negatively contribute to the meeting if done prematurely 04/26 -The patient's paranoid delusions were in evidence early this morning, but they appear to have been improving over the course of the day. It is possible that the patient is taking a "flight into health" within the context of the fact that we have had several discharges today. However, he is convincing as he describes the delusional beliefs that he had been voicing at admission and even as recently as this morning now in terms that reference to these in the past tense. He acknowledges ongoing paranoid believes, but says that he feels that some of the believes that he had held earlier or not based in reality and he is now feeling much safer. -Patient indicates that he is tolerating risperidone well. We will increase the patient's dose of risperidone to a dose of 1 mg in the morning and 2 mg at bedtime. The patient has been advised accordingly. 04/27 - Pt continues to struggle with challenging "the seed thought" that "someone is going to hurt me" and that he has information that could be detrimental to society. He is proud of his progress with challenging the numerous other distortions, and admittedly states that he is less focused on the above thought than he was on admission. - I do agree with the assessment from yesterday, and there is still concern that patient may be experiencing a "flight into health", as his thoughts do still seem somewhat disorganized. Mood has been stable, though possibly inflated by t he patient who rated his mood an 8/10 last evening - Continue current doses of risperidone - additional titration as indicated/tolerated - Family meeting with parents scheduled for tomorrow morning; will need to complete an intake phone call next week to determine if he is a candidate for an IOP back in [place]. 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 Pt is mimicking reports of peers and fixated on how his thoughts and actions will affect them. Poor insight regarding the severity of his illness, need for hospitalization, and medication recommendations. - Continue current medication regimen at this time. Recommendations for titration of risperidone or cross-taper to paliperidone were discussed. Pt repeatedly offered an argument to reduce his dose, feeling with "time and talking to people" he could eliminate his symptoms without medications. - Family meeting with parents today was reportedly superficial, but positive in general - Attempt to schedule intake phone call with [facility] in [place] 04/29 -Continue inpatient treatment, schedule intake with [facility] 04/30 - Continue risperidone 1mg qAM and 2mg qHS - patient now reporting genuine improvement in delusional thinking and ability to address distorted thinking. - Pt will follow-up with [facility] - interim resources were reviewed with patient's parents for any urgent needs Inventory Assets Strengths: intelligent, family support Needs: increase insight into condition, follow up providers. Risk Factors Assessment Male: Yes : Yes Do You Have Access To A Gun?: No Mental Health Diagnoses: Yes Previous Attempt: No Protective Factors Assessment : No Responsible for Young Children: No Employed: No Supportive Family: Yes Interval History Identifying Information 19-year-old male admited on 302 commitment for violet and paranoia. Chief Complaint "I think I'm doing a lot better. Genuinely." Review of Systems Notes Constitutional: denied Cardiovascular: denied Respiratory: denied Gastrointestinal: denied Neurological: denied Psychiatric: denies symptoms other than stated above Total of at least 10 systems reviewed, pertinent positives as above and in HPI. Sleep Information Total Hours of Sleep: 7.5 Sleep Comments: pt on q-15 minute checks Meal Information Percent Meal Consumed - Breakfast: 50 Percent Meal Consumed - Lunch: 100 Percent Meal Consumed - Dinner: 100 Nutrition Comment: per meal record Subjective Subjective Patient was seen & assessed and interval progress reviewed with nursing and social work. Patient has submitted his 72-hour notice, which expires the morning of 05/02. Pt was seen today to assess progress since admission. Pt states "I think I'm doing a lot better. Genuinely." He shares with this provider "I know that the other patients are patients, I'm not thinking they're staff, or that they're on a different team." Pt states he has noticed a change in this thought for the past two days. Pt admits that several days ago, he is aware he was more irritable and requesting to leave and related that to "I thought I was the only patient and that made me overwhelmed. I wanted to go home." Pt states that now he is excited to be leaving soon as "because I feel like I'm doing better and really could do well outside of the hospital." Pt does admit to some ongoing distorted thinking, but states "I'm not like having to act on it. It's there, but I could believe that it may not be true." Pt clarifies this still has to do with the idea that the government is targeting him. Pt states he does feel comfortable talking to his parents and his girlfriend about these thoughts - we discussed the importance of this communication when it comes to family assisting with reality testing, or providing feedback when they feel professional support is necessary. Patient also shared his appreciation for his friends and states that even though he may not feel comfortable sharing everything about his stay, he is appreciative of their support and their awareness that he was not doing well. Pt denied other needs or concerns at this time, admitting to willingness to continue his medication regimen, and with outpatient psychiatric treatment. Physical Exam Psychiatric Orientation: alert, oriented x 3 and cooperative (still reserved, but pleasant and polite) Apperance: appropriately dressed, appropriately groomed and appeared stated age underweight Eye Contact: good eye contact Motor Behavior: no abnormal motor movements (observed while sitting upright on bed) Speech: normal rate/rhythm/volume of speech Affect: + anxious affect and + constricted affect (nervous smiling and laughter) Mood: no depressed mood and no anxious mood Thought Process: goal directed thought process and clear/coherent thought process Thought Content: + cognitive distortions (much improvement with regard to challenging these thoughts); no hopelessness and no worthlessness Suicidal Thoughts: denies suicidal thoughts Homicidal Thoughts: denies homicidal thoughts Hallucinations: no auditory hallucinations and no visual hallucinations Cognition: attention grossly intact and language grossly intact Estimated Intelligence: consistent with education level Insight: + fair insight Judgement: + fair judgement Vital Signs (Past 24 Hours) Last Vital Signs Temp 36.3 C L 04/30/20 06:43 Pulse 109 H 04/30/20 06:44 Resp 16 04/30/20 06:43 BP 105/65 04/30/20 06:44 Pulse Ox 98 04/20/20 15:28 Results & Data ([facility]) Current Inpatient Medications Current Inpatient Medications: Current Inpatient Medications Acetaminophen (Acetaminophen 325 Mg Tab) 650 mg PO Q4H PRN PRN Reason: Headache or Minor Fever Stop: 05/20/20 14:12 Al Hydrox/Mg Hydrox/Simethicone (Aluminum/Magnesium Susp 30 Ml Udc) 30 ml PO Q4H PRN PRN Reason: GI Upset Stop: 05/20/20 14:12 Benztropine Mesylate (Benztropine Mesylate 1 Mg Tab) 1 mg PO TID PRN PRN Reason: Muscle Spasm Stop: 05/21/20 10:29 Bismuth Subsalicylate (Bismuth Subsalicylate Liqd 236 Ml) 15 ml PO PRN PRN PRN Reason: Loose Stool Stop: 05/20/20 14:12 Hydroxyzine HCl (Hydroxyzine Hcl 25 Mg Tab) 50 mg PO HSZ PRN PRN Reason: Insomnia Stop: 05/20/20 14:12 Last Admin: 04/29/20 00:05 Dose: 50 mg Documented by: Hydroxyzine HCl (Hydroxyzine Hcl 25 Mg Tab) 25 mg PO Q4H PRN PRN Reason: Anxiety Stop: 05/20/20 14:12 Last Admin: 04/23/20 22:52 Dose: 25 mg Documented by: Lorazepam (Lorazepam 1 Mg Tab) 1 mg PO Q6 PRN PRN Reason: Anxiety Stop: 05/20/20 14:16 Last Admin: 04/29/20 00:40 Dose: 1 mg Documented by: Magnesium Hydroxide (Magnesium Hydroxide Susp 30 Ml Udc) 30 ml PO DAILY PRN PRN Reason: Constipation Stop: 05/20/20 14:12 Risperidone (Risperidone Odt 1mg) 1 mg PO Q6 PRN PRN Reason: Agitation Stop: 05/20/20 14:15 Last Admin: 04/26/20 15:02 Dose: 1 mg Documented by: Risperidone (Risperidone 1 Mg Tablet) 1 mg PO QAM COY Stop: 05/27/20 08:59 Last Admin: 04/30/20 09:09 Dose: 1 mg Documented by: Risperidone (Risperidone 2 Mg Tablet) 2 mg PO HS COY Stop: 05/26/20 21:59 Last Admin: 04/29/20 21:20 Dose: 2 mg Documented by: Sodium Chloride (Sodium Chloride 0.65% Na Soln 45 Ml ([place])) 1 - 2 sprays NA PRN PRN PRN Reason: Nasal Dryness/Congestion Stop: 05/20/20 14:12 Mental Health & Subst Abuse Tx Therapist Name of Therapist: . Electrotype Finisher Name of Electrotype Finisher: [facility] Phone Number for Electrotype Finisher: [phone] Date of Appointment with Electrotype Finisher: 05/03/20 Time of Appointment with Electrotype Finisher: 11:00 a.m. Case Management Appointment Comment: Will call you to discuss school Post Discharge Appointments Primary Care Physician Name Of Family Doctor: Dr. INGA Nuñez Primary [facility] Date of Appointment with PCP: 05/03/20 Time of Appointment with PCP: 10:00 am Partial or Psych Rehab Name of Partial or Psych Rehab: [facility] Phone Number of Partial or Psych Rehab: [phone] ext [phone] Time of Appointment at Partial or Psych Rehab: Intake completed on 04/29 - The program will start in 2 weeks and they Partial or Psych Rehab Appointment Comment: will call you to schedule the first day Other #1: Name of Aftercare Appointment: Mobile Crisis Team Phone Number of Aftercare Appointment: 24 Hour Hotline: [phone] or dial 03-18- Aftercare Appointment Comment: telephone and free walk-in counseling by trained staff Contact Information Discharge Discharge Address: [address] [place] [address]
[2020-04-30] MEDS: risperiDONE 2 MG TABLET PO SCH (21:06)
--- NOTE | 2020-05-01 08:52 | Discharge Summary ---
Date of Service May 01, 2020 History of Present Illness Patient's roommates contacted family as he was not eating or sleeping well for several days and seemed disorganized. He became overly focussed on dying from food allergy after reading a story about a [facility] student dying from a reaction. Parents drove from to assist and had difficulty convincing him to come to ED due to his paranoia. He did not seem to understand the severity of his condition or what inpatient psych care would entail so he was ultimately committed. He exhibited restlessness and grandiosity but was not aggressive in ED but remained resistant to medication. Last night he accepted prn Ativan and Risperdal Mtab as ordered and was able to sleep 5 hours. He was up for a bit and then when back to sleep. Today he reports that he has been sleeping 4 hours a night for 2-3 weeks. 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 He denies investing his own money and add "yeah, I'm talking too fast--it sounds shady but it's not." He denies previous periods of depression, violte or hypomania. He states that his thoughts were racing about food being unsafe and that is improving but he'd prefer if staff would eat some of the food that he is to eat as a "taster". Physical Exam Vital Signs (Past 24 Hours) Last Vital Signs Temp 36.4 C L 05/01/20 06:48 Pulse 74 05/01/20 06:49 Resp 18 05/01/20 06:48 BP 121/85 05/01/20 06:49 Pulse Ox 98 04/20/20 15:28 Psychiatric Data Advance Directives Advance Directives Information Provided: Yes Advance Directives: No Mental Health Advance Directive: No Advance Directives on File: No Living Will: No Power of Noise Abatement Engineer: No Advance Directives Reason:: Declines as Mental Health Visit. Risk Factors Assessment Male: Yes : Yes Do You Have Access To A Gun?: No Mental Health Diagnoses: Yes Previous Attempt: No Protective Factors Assessment : No Responsible for Young Children: No Employed: No Supportive Family: Yes Discharge Data Lab Results 04/20/20 04/20/20 04/20/20 09:30 09:30 09:30 WBC 9.66 RBC 4.94 Hgb 16.6 Hct 44.8 MCV 90.7 MCH 33.6 MCHC 37.1 H RDW Std Deviation 41.1 RDW Coeff of Susan 12.3 Plt Count 341 MPV 9.8 Immature Gran % (Auto) 0.2 Neut % (Auto) 76.1 Lymph % (Auto) 15.7 [place] % (Auto) 7.1 Eos % (Auto) 0.5 Baso % (Auto) 0.4 Neut # (Auto) 7.34 H Lymph # (Auto) 1.52 [place] # (Auto) 0.69 H Eos # (Auto) 0.05 Baso # (Auto) 0.04 Immature Gran # (Auto) 0.02 Sodium 138 Potassium 3.4 L Chloride 104 Carbon Dioxide 22 Anion Gap 12.0 H BUN 14 Creatinine 1.13 Est Cr Clr Drug Dosing 99.9 Est GFR ( Amer) 107.8 Est GFR (Non-Af Amer) 93.1 BUN/Creatinine Ratio 12.7 Glucose 114 H Fasting Glucose Calcium 9.4 Total Bilirubin 1.2 H AST 20 ALT 25 Alkaline Phosphatase 67 Total Protein 8.6 H Albumin 4.9 Globulin 3.7 Albumin/Globulin Ratio 1.3 Triglycerides Cholesterol LDL Cholesterol, Calc VLDL Cholesterol, Calc HDL Cholesterol Cholesterol/HDL Ratio TSH 1.570 Urine Color Urine Appearance Urine pH Ur Specific [place] Urine Protein Urine Glucose (UA) Urine Ketones Urine Blood Urine Nitrite Urine Bilirubin Urine Urobilinogen Ur Leukocyte Esterase Urine WBC (Auto) Urine RBC (Auto) U Hyaline Cast (Auto) U Epithel Cells (Auto) Urine Bacteria (Auto) Salicylates < 1.7 L Urine Opiates Screen Ur Methadone, Qual Acetaminophen < 2 L Urine Barbiturates Ur Phencyclidine (PCP) U Amphetamin/Meth Scrn MDMA (Ecstasy) Screen U Benzodiazepines Scrn Ur Cocaine Metabolite U Marijuana (THC) Screen U Marijuana THC Carboxy Drug Screen Comment Ethyl Alcohol mg/dL COVID-19 Eval Order SARS-CoV-2, RNA, NAAT 04/20/20 04/20/20 04/20/20 09:30 12:10 12:10 WBC RBC Hgb Hct MCV MCH MCHC RDW Std Deviation RDW Coeff of Susan Plt Count MPV Immature Gran % (Auto) Neut % (Auto) Lymph % (Auto) [place] % (Auto) Eos % (Auto) Baso % (Auto) Neut # (Auto) Lymph # (Auto) [place] # (Auto) Eos # (Auto) Baso # (Auto) Immature Gran # (Auto) Sodium Potassium Chloride Carbon Dioxide Anion Gap BUN Creatinine Est Cr Clr Drug Dosing Est GFR ( Amer) Est GFR (Non-Af Amer) BUN/Creatinine Ratio Glucose Fasting Glucose Calcium Total Bilirubin AST ALT Alkaline Phosphatase Total Protein Albumin Globulin Albumin/Globulin Ratio Triglycerides Cholesterol LDL Cholesterol, Calc VLDL Cholesterol, Calc HDL Cholesterol Cholesterol/HDL Ratio TSH Urine Color Urine Appearance Urine pH Ur Specific [place] Urine Protein Urine Glucose (UA) Urine Ketones Urine Blood Urine Nitrite Urine Bilirubin Urine Urobilinogen Ur Leukocyte Esterase Urine WBC (Auto) Urine RBC (Auto) U Hyaline Cast (Auto) U Epithel Cells (Auto) Urine Bacteria (Auto) Salicylates Urine Opiates Screen Ur Methadone, Qual Acetaminophen Urine Barbiturates Ur Phencyclidine (PCP) U Amphetamin/Meth Scrn MDMA (Ecstasy) Screen U Benzodiazepines Scrn Ur Cocaine Metabolite U Marijuana (THC) Screen U Marijuana THC Carboxy Drug Screen Comment Ethyl Alcohol mg/dL < 3.0 COVID-19 Eval Order Covid19 [facility] SARS-CoV-2, RNA, NAAT NEGATIVE 04/20/20 04/20/20 04/20/20 Unknown Unknown Unknown WBC RBC Hgb Hct MCV MCH MCHC RDW Std Deviation RDW Coeff of Susan Plt Count MPV Immature Gran % (Auto) Neut % (Auto) Lymph % (Auto) [place] % (Auto) Eos % (Auto) Baso % (Auto) Neut # (Auto) Lymph # (Auto) [place] # (Auto) Eos # (Auto) Baso # (Auto) Immature Gran # (Auto) Sodium Potassium Chloride Carbon Dioxide Anion Gap BUN Creatinine Est Cr Clr Drug Dosing Est GFR ( Amer) Est GFR (Non-Af Amer) BUN/Creatinine Ratio Glucose Fasting Glucose Calcium Total Bilirubin AST ALT Alkaline Phosphatase Total Protein Albumin Globulin Albumin/Globulin Ratio Triglycerides Cholesterol LDL Cholesterol, Calc VLDL Cholesterol, Calc HDL Cholesterol Cholesterol/HDL Ratio TSH Urine Color Dark Yellow Urine Appearance Clear Urine pH 6.0 Ur Specific [place] 1.029 Urine Protein 1+ H Urine Glucose (UA) Negative Urine Ketones 3+ H Urine Blood Negative Urine Nitrite Negative Urine Bilirubin Negative Urine Urobilinogen Negative Ur Leukocyte Esterase Negative Urine WBC (Auto) 1-5 Urine RBC (Auto) 0-4 U Hyaline Cast (Auto) 1-5 U Epithel Cells (Auto) 5-10 H Urine Bacteria (Auto) Negative Salicylates Urine Opiates Screen Neg Ur Methadone, Qual Neg Acetaminophen Urine Barbiturates Neg Ur Phencyclidine (PCP) Neg U Amphetamin/Meth Scrn Neg MDMA (Ecstasy) Screen Neg U Benzodiazepines Scrn Neg Ur Cocaine Metabolite Neg U Marijuana (THC) Screen Pos H U Marijuana THC Carboxy 54 H Drug Screen Comment SEE NOTE Ethyl Alcohol mg/dL COVID-19 Eval Order SARS-CoV-2, RNA, NAAT 04/22/20 07:13 WBC RBC Hgb Hct MCV MCH MCHC RDW Std Deviation RDW Coeff of Susan Plt Count MPV Immature Gran % (Auto) Neut % (Auto) Lymph % (Auto) [place] % (Auto) Eos % (Auto) Baso % (Auto) Neut # (Auto) Lymph # (Auto) [place] # (Auto) Eos # (Auto) Baso # (Auto) Immature Gran # (Auto) Sodium Potassium Chloride Carbon Dioxide Anion Gap BUN Creatinine Est Cr Clr Drug Dosing Est GFR ( Amer) Est GFR (Non-Af Amer) BUN/Creatinine Ratio Glucose Fasting Glucose 92 Calcium Total Bilirubin AST ALT Alkaline Phosphatase Total Protein Albumin Globulin Albumin/Globulin Ratio Triglycerides 109 Cholesterol 160 LDL Cholesterol, Calc 70 VLDL Cholesterol, Calc 22 HDL Cholesterol 68 Cholesterol/HDL Ratio 2 TSH Urine Color Urine Appearance Urine pH Ur Specific [place] Urine Protein Urine Glucose (UA) Urine Ketones Urine Blood Urine Nitrite Urine Bilirubin Urine Urobilinogen Ur Leukocyte Esterase Urine WBC (Auto) Urine RBC (Auto) U Hyaline Cast (Auto) U Epithel Cells (Auto) Urine Bacteria (Auto) Salicylates Urine Opiates Screen Ur Methadone, Qual Acetaminophen Urine Barbiturates Ur Phencyclidine (PCP) U Amphetamin/Meth Scrn MDMA (Ecstasy) Screen U Benzodiazepines Scrn Ur Cocaine Metabolite U Marijuana (THC) Screen U Marijuana THC Carboxy Drug Screen Comment Ethyl Alcohol mg/dL COVID-19 Eval Order SARS-CoV-2, RNA, NAAT Mental Health & Subst Abuse Tx Therapist Name of Therapist: . Rn Or Lpn Name of Rn Or Lpn: [facility] Phone Number for Rn Or Lpn: [phone] Date of Appointment with Rn Or Lpn: 05/03/20 Time of Appointment with Rn Or Lpn: 11:00 a.m. Case Management Appointment Comment: Will call you to discuss school Post Discharge Appointments Primary Care Physician Name Of Family Doctor: Dr. INGA Nuñez Primary [facility] Date of Appointment with PCP: 05/03/20 Time of Appointment with PCP: 10:00 am Provider Appointment Comment: In person Partial or Psych Rehab Name of Partial or Psych Rehab: [facility] Phone Number of Partial or Psych Rehab: [phone] ext [phone] Time of Appointment at Partial or Psych Rehab: Intake completed on 04/29 - The program will start in 2 weeks and they Partial or Psych Rehab Appointment Comment: will call you to schedule the first day Contact Information Discharge Discharge Address: [address] [place] [address] Discharge Plan Discharge Items Patient Disposition: Home - Self-Care Reason For Visit: UNSPECIFIED PSYCHOSIS 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 Follow through with your scheduled aftercare appointments. If unable to keep an appointment, please call to reschedule. 2. Take your medication only as prescribed. Medication should not be changed or stopped without the approval of your doctor. In the event of worsening symptoms or concerns about side effects, contact your doctor immediately. 3. Utilize new healthy coping skills, anger management skills, and stress management skills learned during your hospitalization. Journal feelings and process them with a support person. Identify stressors or situations that may result in relapse, deterioration or inappropriate behaviors and develop a plan to deal with those issues. 4. If your coping skills are ineffective and you are in crisis, contact your outpatient providers for direction. If unable to reach your providers, please call the [facility] CRISIS LINE AT , go to the [facility] walk-in center at [address], [address], [place], or go to the closest Emergency Room. 5. Avoid alcohol and un-prescribed drugs. 6. You have been provided with the Mental Health Advance Directives Pamphlet for your review. AFTERCARE APPOINTMENTS: * Please call your insurance company prior to your scheduled appointment to confirm your aftercare providers are covered. Take your insurance information to your appointments. WHO TO CALL AND WHEN: Medical Emergencies: For questions or emergencies related to your hospital stay, please contact the Inpatient Behavioral Health Unit at [phone]. A department clinician is on-call 07/09 for the Behavioral Health Unit for emergencies At any time you feel your situation is an emergency, you may also call 911 immediately. Pending Studies at Discharge: No Stand-Alone Forms: My [facility], Smoking Cessation Medications and DC Order Prescriptions: No Action No Known Home Medications RF: 0 Admission Data Admit Date/Time: 04/20/20 14:14 Attending Provider: Dayana Morales Admit Provider: Dayana Morales Primary Care Provider: PCP,NO Other Interventions: PSY Interdisciplinary Discharge Planning Last Done: 05/01/20 07:51 Coding
[2020-05-01] MEDS: risperiDONE 1 MG TABLET PO SCH (09:02)
--- NOTE | 2020-05-01 11:54 | Discharge Summary ---
Date of Service May 01, 2020 History of Present Illness Patient's roommates contacted family as he was not eating or sleeping well for several days and seemed disorganized. He became overly focussed on dying from food allergy after reading a story about a [facility] student dying from a reaction. Parents drove from to assist and had difficulty convincing him to come to ED due to his paranoia. He did not seem to understand the severity of his condition or what inpatient psych care would entail so he was ultimately committed. He exhibited restlessness and grandiosity but was not aggressive in ED but remained resistant to medication. Last night he accepted prn Ativan and Risperdal Mtab as ordered and was able to sleep 5 hours. He was up for a bit and then when back to sleep. Today he reports that he has been sleeping 4 hours a night for 2-3 weeks. 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 He denies investing his own money and add "yeah, I'm talking too fast--it sounds shady but it's not." He denies previous periods of depression, violet or hypomania. He states that his thoughts were racing about food being unsafe and that is improving but he'd prefer if staff would eat some of the food that he is to eat as a "taster". Physical Exam Psychiatric Orientation: alert, oriented x 3 and cooperative Apperance: appropriately dressed, appropriately groomed and appeared stated age Tall, thin white male appearing stated age. Casually and appropriately dressed in street clothes, hair appears clean and is combed neatly. Seated in no acute distress. Calm, cooperative, and pleasant. Eye Contact: + fair eye contact Motor Behavior: steady gait and station and no abnormal motor movements Speech: normal rate/rhythm/volume of speech Bright and reactive, mild anxiety, appropriate and consistent with stated mood. "Excited, a little nervous." Thought Process: goal directed thought process The majority of patients thought content is reality based, but he continues to endorse some difficulty processing and understanding the thoughts he was having on presentation. Suicidal Thoughts: denies suicidal thoughts Homicidal Thoughts: denies homicidal thoughts Hallucinations: no auditory hallucinations and no visual hallucinations Cognition: attention grossly intact and language grossly intact; + recent memory not intact (Impaired for events around the time of admission) Estimated Intelligence: consistent with education level Insight: + fair insight Judgement: + fair judgement Vital Signs (Past 24 Hours) Last Vital Signs Temp 36.4 C L 05/01/20 06:48 Pulse 74 05/01/20 06:49 Resp 18 05/01/20 06:48 BP 121/85 05/01/20 06:49 Pulse Ox 98 04/20/20 15:28 Principal Diagnosis 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 On presentation, he appeared manic given his report that he had been sleeping only 4 hours a night for 2-3 weeks, had not been going to classes he had become overly focused on an online E commerce site, was grandiose and hyperverbal. He also demonstrated paranoia (was not eating due to concerns that food was unsafe and could kill him), tangential, and delusions (that lab work he had done in the ER was toxic and had infected him, that he had something inside him that would harm him, and that others were conspiring against him). He was fearful, suspicious and paranoid about staff and his parents, often laughing nervously and inappropriately, and had bizarre and disorganized behavior (flushing food down the toilet). At times he felt that other patients were "a test," and was unable to reality test his delusional thoughts. He was very resistant to medications, and although he was started on risperidone at admission, he often required significant staff support to take it. His dose was titrated to a total of 3 mg daily, which he tolerated well. His sleep gradually improved, as did appetite and p.o. intake. Multiple times he reported that he had not been honest with staff and had been trying to minimize his symptoms to staff, trying to convince staff that he was ready to be discharged. He was maintained in a private room and was excused from groups during the first part of his hospitalization due to the severity of his psychosis and disorganization, but gradually began to interact more with others and was able to attend and participate in unit programming and tolerate a roommate. A family meeting with his parents was postponed multiple times as he was unable to tolerate even brief phone calls with them, but was ultimately held 04/28/2020. Symptoms, diagnosis, and treatment recommendations were reviewed, including recommendations to withdraw from school and stepdown to a partial hospitalization program at the conclusion of inpatient treatment. They made a plan for the patient to return home to live with parents after discharge. All were in agreement with this plan, and the patient was referred to [facility] and completed an intake by phone. Although he consistently reported that he no longer felt his parents or hospital staff were conspiring against him, he did think that the government might be interested in him. He expressed displeasure with his estimated length of stay on 04/29/2020, and submitted a 72-hour notice requesting to withdraw from treatment, she was unwilling to rescind. Due to concerns that he was continuing to experience psychotic symptoms, he remained in the hospital until 05/01/2020, when discharge to his parents could be coordinated. Hospital staff contacted his parents today prior to discharge to inform them that the patient had requested to withdraw from treatment and did not meet criteria for involuntary commitment despite some ongoing psychotic symptoms. They discussed his treatment and safety plan, including starting the [facility] as soon as it was available, with a bridge appointment with his PCP in the interim. They were also given information about their local crisis line and nearby hospitals in network with their insurance plan. Day of Discharge Assessment Staff report the patient has been attending and participating appropriately in groups, and spends his free time with other patients. He remains unwilling to rescind his 72-hour notice. He ate all of his meals yesterday, and did not appear paranoid about unpackaged food, and appeared to sleep well overnight. He is taking medications as prescribed. On my assessment, he reports his mood is "excited, a little nervous." He is looking forward to discharge and getting out of the hospital, as he is feeling bored and cooped up here. He says he is nervous about how things will go once he gets home, as he has not always had the best communication with his parents. He was able to engage in a discussion about how to improve their communication, and liked the suggestion of having a daily check in with them about how he is doing, similar to community meeting here in the hospital. He states his mood is "good," and denies thoughts of harming himself or others. He denies hallucinations and does not voiced delusional thought content, but does endorse ongoing mild paranoia, stating that he can get lost in his thoughts and overthink things, sometimes seeing connections where there are not any. Denies any acute safety concerns, and does not feel he is in danger from others. He denies side effects to medication, and does think it is helping him. He thinks that it has been helpful to be on a structured schedule here in the hospital, and discussed ways that he can carry that over into his routine at home. We discussed at length the risks of cannabis/THC use, as well as other psychedelics, depressants, hallucinogens or stimulants. He is able to identify his marijuana use as a precipitant to his symptoms, and agrees to abstain for the time being, but did ask what would happen if he smoked in the future, or used CBD. He notes it will be hard to be around certain friends who use, and plans to tell them he can't anymore. Practiced different ways to communicate this with them. We discussed his differential diagnosis, and that it may take some time to clarify the true diagnosis. Discussed the things that he has control over and ways that he can minimize the risk of relapse. Transition of Care Transition Of Care Record: was reviewed with the patient Advance Directives Advance Directives Information Provided: Yes Advance Directives: No Mental Health Advance Directive: No Advance Directives on File: No Living Will: No Power of Screen Maker: No Advance Directives Reason:: Declines as Mental Health Visit. Risk Factors Assessment Risk factors were mitigated by admission to the inpatient unit, use of medications to target mood and psychotic symptoms, education about diagnoses and recommended treatment, education about the risks of substance use and recommendations for abstinence, participation in groups and therapy, working on healthy coping skills and a discharge safety plan, family meeting with parents, and referring for stepdown to partial hospitalization. Patient has demonstrated improvement in presenting symptoms, is consistently denying thoughts of harming himself or others, has not been violent or aggressive here, is eating, sleeping, and taking medications as prescribed, and has demonstrated significant improvement in psychotic symptoms. He is submitted a 72-hour notice requesting to withdraw from treatment, does not meet involuntary commitment criteria, and parents have indicated willingness to pick him up and take him home with them. He is no longer at acute risk of harm to himself or others, so can be managed as an outpatient at this time. Male: Yes : Yes Do You Have Access To A Gun?: No Health Problems: No Mental Health Diagnoses: Yes Previous Attempt: No Family History of Suicide: No Previous Psychiatric Hospitalization: No Hopelessness: No Smoker: No Protective Factors Assessment : No Responsible for Young Children: No Employed: No Stable Relationships: Yes Supportive Family: Yes Tobacco Cessation at Discharge Tobacco Cessation Medication Prescribed at Discharge: Not Applicable/Non-Smoker Total Time Total Time Spent: Greater Than 30 Minutes Total Time Includes: Examination of the patient, Discharge Planning and Medication Reconciliation Discharge Data Lab Results 04/20/20 04/20/20 04/20/20 09:30 09:30 09:30 WBC 9.66 RBC 4.94 Hgb 16.6 Hct 44.8 MCV 90.7 MCH 33.6 MCHC 37.1 H RDW Std Deviation 41.1 RDW Coeff of Susan 12.3 Plt Count 341 MPV 9.8 Immature Gran % (Auto) 0.2 Neut % (Auto) 76.1 Lymph % (Auto) 15.7 Rock % (Auto) 7.1 Eos % (Auto) 0.5 Baso % (Auto) 0.4 Neut # (Auto) 7.34 H Lymph # (Auto) 1.52 Rock # (Auto) 0.69 H Eos # (Auto) 0.05 Baso # (Auto) 0.04 Immature Gran # (Auto) 0.02 Sodium 138 Potassium 3.4 L Chloride 104 Carbon Dioxide 22 Anion Gap 12.0 H BUN 14 Creatinine 1.13 Est Cr Clr Drug Dosing 99.9 Est GFR ( Amer) 107.8 Est GFR (Non-Af Amer) 93.1 BUN/Creatinine Ratio 12.7 Glucose 114 H Fasting Glucose Calcium 9.4 Total Bilirubin 1.2 H AST 20 ALT 25 Alkaline Phosphatase 67 Total Protein 8.6 H Albumin 4.9 Globulin 3.7 Albumin/Globulin Ratio 1.3 Triglycerides Cholesterol LDL Cholesterol, Calc VLDL Cholesterol, Calc HDL Cholesterol Cholesterol/HDL Ratio TSH 1.570 Urine Color Urine Appearance Urine pH Ur Specific [place] Urine Protein Urine Glucose (UA) Urine Ketones Urine Blood Urine Nitrite Urine Bilirubin Urine Urobilinogen Ur Leukocyte Esterase Urine WBC (Auto) Urine RBC (Auto) U Hyaline Cast (Auto) U Epithel Cells (Auto) Urine Bacteria (Auto) Salicylates < 1.7 L Urine Opiates Screen Ur Methadone, Qual Acetaminophen < 2 L Urine Barbiturates Ur Phencyclidine (PCP) U Amphetamin/Meth Scrn MDMA (Ecstasy) Screen U Benzodiazepines Scrn Ur Cocaine Metabolite U Marijuana (THC) Screen U Marijuana THC Carboxy Drug Screen Comment Ethyl Alcohol mg/dL COVID-19 Eval Order SARS-CoV-2, RNA, NAAT 04/20/20 04/20/20 04/20/20 09:30 12:10 12:10 WBC RBC Hgb Hct MCV MCH MCHC RDW Std Deviation RDW Coeff of Susan Plt Count MPV Immature Gran % (Auto) Neut % (Auto) Lymph % (Auto) Rock % (Auto) Eos % (Auto) Baso % (Auto) Neut # (Auto) Lymph # (Auto) Rock # (Auto) Eos # (Auto) Baso # (Auto) Immature Gran # (Auto) Sodium Potassium Chloride Carbon Dioxide Anion Gap BUN Creatinine Est Cr Clr Drug Dosing Est GFR ( Amer) Est GFR (Non-Af Amer) BUN/Creatinine Ratio Glucose Fasting Glucose Calcium Total Bilirubin AST ALT Alkaline Phosphatase Total Protein Albumin Globulin Albumin/Globulin Ratio Triglycerides Cholesterol LDL Cholesterol, Calc VLDL Cholesterol, Calc HDL Cholesterol Cholesterol/HDL Ratio TSH Urine Color Urine Appearance Urine pH Ur Specific [place] Urine Protein Urine Glucose (UA) Urine Ketones Urine Blood Urine Nitrite Urine Bilirubin Urine Urobilinogen Ur Leukocyte Esterase Urine WBC (Auto) Urine RBC (Auto) U Hyaline Cast (Auto) U Epithel Cells (Auto) Urine Bacteria (Auto) Salicylates Urine Opiates Screen Ur Methadone, Qual Acetaminophen Urine Barbiturates Ur Phencyclidine (PCP) U Amphetamin/Meth Scrn MDMA (Ecstasy) Screen U Benzodiazepines Scrn Ur Cocaine Metabolite U Marijuana (THC) Screen U Marijuana THC Carboxy Drug Screen Comment Ethyl Alcohol mg/dL < 3.0 COVID-19 Eval [facility] SARS-CoV-2, RNA, NAAT NEGATIVE 04/20/20 04/20/20 04/20/20 Unknown Unknown Unknown WBC RBC Hgb Hct MCV MCH MCHC RDW Std Deviation RDW Coeff of Susan Plt Count MPV Immature Gran % (Auto) Neut % (Auto) Lymph % (Auto) Rock % (Auto) Eos % (Auto) Baso % (Auto) Neut # (Auto) Lymph # (Auto) Rock # (Auto) Eos # (Auto) Baso # (Auto) Immature Gran # (Auto) Sodium Potassium Chloride Carbon Dioxide Anion Gap BUN Creatinine Est Cr Clr Drug Dosing Est GFR ( Amer) Est GFR (Non-Af Amer) BUN/Creatinine Ratio Glucose Fasting Glucose Calcium Total Bilirubin AST ALT Alkaline Phosphatase Total Protein Albumin Globulin Albumin/Globulin Ratio Triglycerides Cholesterol LDL Cholesterol, Calc VLDL Cholesterol, Calc HDL Cholesterol Cholesterol/HDL Ratio TSH Urine Color Dark Yellow Urine Appearance Clear Urine pH 6.0 Ur Specific [place] 1.029 Urine Protein 1+ H Urine Glucose (UA) Negative Urine Ketones 3+ H Urine Blood Negative Urine Nitrite Negative Urine Bilirubin Negative Urine Urobilinogen Negative Ur Leukocyte Esterase Negative Urine WBC (Auto) 1-5 Urine RBC (Auto) 0-4 U Hyaline Cast (Auto) 1-5 U Epithel Cells (Auto) 5-10 H Urine Bacteria (Auto) Negative Salicylates Urine Opiates Screen Neg Ur Methadone, Qual Neg Acetaminophen Urine Barbiturates Neg Ur Phencyclidine (PCP) Neg U Amphetamin/Meth Scrn Neg MDMA (Ecstasy) Screen Neg U Benzodiazepines Scrn Neg Ur Cocaine Metabolite Neg U Marijuana (THC) Screen Pos H U Marijuana THC Carboxy 54 H Drug Screen Comment SEE NOTE Ethyl Alcohol mg/dL COVID-19 Eval Order SARS-CoV-2, RNA, NAAT 04/22/20 07:13 WBC RBC Hgb Hct MCV MCH MCHC RDW Std Deviation RDW Coeff of Susan Plt Count MPV Immature Gran % (Auto) Neut % (Auto) Lymph % (Auto) Rock % (Auto) Eos % (Auto) Baso % (Auto) Neut # (Auto) Lymph # (Auto) Rock # (Auto) Eos # (Auto) Baso # (Auto) Immature Gran # (Auto) Sodium Potassium Chloride Carbon Dioxide Anion Gap BUN Creatinine Est Cr Clr Drug Dosing Est GFR ( Amer) Est GFR (Non-Af Amer) BUN/Creatinine Ratio Glucose Fasting Glucose 92 Calcium Total Bilirubin AST ALT Alkaline Phosphatase Total Protein Albumin Globulin Albumin/Globulin Ratio Triglycerides 109 Cholesterol 160 LDL Cholesterol, Calc 70 VLDL Cholesterol, Calc 22 HDL Cholesterol 68 Cholesterol/HDL Ratio 2 TSH Urine Color Urine Appearance Urine pH Ur Specific [place] Urine Protein Urine Glucose (UA) Urine Ketones Urine Blood Urine Nitrite Urine Bilirubin Urine Urobilinogen Ur Leukocyte Esterase Urine WBC (Auto) Urine RBC (Auto) U Hyaline Cast (Auto) U Epithel Cells (Auto) Urine Bacteria (Auto) Salicylates Urine Opiates Screen Ur Methadone, Qual Acetaminophen Urine Barbiturates Ur Phencyclidine (PCP) U Amphetamin/Meth Scrn MDMA (Ecstasy) Screen U Benzodiazepines Scrn Ur Cocaine Metabolite U Marijuana (THC) Screen U Marijuana THC Carboxy Drug Screen Comment Ethyl Alcohol mg/dL COVID-19 Eval Order SARS-CoV-2, RNA, NAAT Hospital Course (1) Psychosis: 04/21/20--The patient was admitted to the [facility] ([facility]) on q15 min checks (behavioral with suicide precautions) for safety. The patient will participate in group, recreational, and milieu therapies and will be offered additional individual and family sessions as clinically appropriate. Risks/benefits/alternatives reviewed as able re: Risperdal M tab 1 mg po qhs with additional prn. discussion included but was not limited to need for metabolic monitoring and risks of TD. Metabolic labs in am. 04/22/20--increase Risperdal M tab to 0.5 mg po qam and 1 mg po qhs. It has been quite difficult to get patient to accept meds, but prefer trial of bid given tachy/low diastolic bp (likely dehydration). If he would refuse medications I do feel he is at significant risk of or serious injury due to his mental illness interfering with sleep/eating/safety within 30 days so I would support medications over objection. --sleep and expansiveness improving, remains paranoid around food and blood draw. 04/23 -reviewed FLP and FG for baseline on an atypical antipsychotic, all values within normal limits. Continue risperidone 0.5 every morning and 1 mg at bedtime, plus as needed medication. -Mood is stabilizing, patient reporting less paranoia, insight improved. He indicates willingness to sign in voluntarily, will revisit again tomorrow. -Schedule family meeting with parents, coordinate with the [employer] as he indicates he will need to medically withdrawal. He will need aftercare in [place]. -Continue to encourage group attendance of participation, and start to work on discharge planning/safety plan. 04/24 - Continue risperidone 0.5mg qAM, but titrating evening dose to 1.5mg - pt continues to have prn dosing available. - Pt was hopeful to schedule a family meeting with parents, but has been decompensating after casual phone conversations - will pursue a family meeting when patient is appropriate to participate - Pt indicates tentative plan to return home, and was encouraged to consider a partial hospitalization program if one is available - pt indicated he would be interested in this 04/25 - Patient remains very delusional and paranoid, admitting that he has been minimizing the delusions and is now ready to be "open and honest about everything" - suspicious of medications, but still agreeing to utilize both scheduled and prn doses. - Risperidone was titrated last evening - consider further titration as indicated. Pt is still requiring prn medications of disorganized thoughts and anxiety - Pt remains unable to tolerate a family meeting at this time - having delusions of reference with numerous individuals, including parents, which would likely negatively contribute to the meeting if done prematurely 04/26 -The patient's paranoid delusions were in evidence early this morning, but they appear to have been improving over the course of the day. It is possible that the patient is taking a "flight into health" within the context of the fact that we have had several discharges today. However, he is convincing as he describes the delusional beliefs that he had been voicing at admission and even as recently as this morning now in terms that reference to these in the past tense. He acknowledges ongoing paranoid believes, but says that he feels that some of the believes that he had held earlier or not based in reality and he is now feeling much safer. -Patient indicates that he is tolerating risperidone well. We will increase the patient's dose of risperidone to a dose of 1 mg in the morning and 2 mg at bedtime. The patient has been advised accordingly. 04/27 - Pt continues to struggle with challenging "the seed thought" that "someone is going to hurt me" and that he has information that could be detrimental to society. He is proud of his progress with challenging the numerous other distortions, and admittedly states that he is less focused on the above thought than he was on admission. - I do agree with the assessment from yesterday, and there is still concern that patient may be experiencing a "flight into health", as his thoughts do still seem somewhat disorganized. Mood has been stable, though possibly inflated by the patient who rated his mood an 8/10 last evening - Continue current doses of risperidone - additional titration as indicated/tolerated - Family meeting with parents scheduled for tomorrow morning; will need to complete an intake phone call next week to determine if he is a candidate for an IOP back in [place]. 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 Pt is mimicking reports of peers and fixated on how his thoughts and actions will affect them. Poor insight regarding the severity of his illness, need for hospitalization, and medication recommendations. - Continue current medication regimen at this time. Recommendations for titration of risperidone or cross-taper to paliperidone were discussed. Pt repeatedly offered an argument to reduce his dose, feeling with "time and talking to people" he could eliminate his symptoms without medications. - Family meeting with parents today was reportedly superficial, but positive in general - Attempt to schedule intake phone call with [facility] in [place] 04/29 -Continue inpatient treatment, schedule intake with [facility] 04/30 - Continue risperidone 1mg qAM and 2mg qHS - patient now reporting genuine improvement in delusional thinking and ability to address distorted thinking. - Pt will follow-up with [facility] - interim resources were reviewed with patient's parents for any urgent needs. 05/01 - Discharge to home with parents. Staff have reviewed discharge plans/safety plan with parents , as well as ongoing (but significantly improved) psychotic symptoms. The patient is scheduled to start partial hospitalization program at [facility] in the next 1-2 weeks and has a bridge appointment with his PCP in 2 days. Recommend brain MRI as an outpatient as part of organic work-up for first episode. - Consolidate risperidone to bedtime for improved adherence and reduced risk of daytime sedation. Description issued for 3 mg at bedtime #30-day supply. 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 He asked multiple appropriate and thoughtful questions. (2) Cannabis abuse: 05/01 - The risks of cannabis use have been discussed on multiple occasions, including risks of ongoing substance use (psychotic and mood sympt oms, anxiety, legal problems, impaired cognition, paranoia, behavioral changes, decreased motivation). We have reviewed recommendations to abstain from substance use including recreational drugs and controlled substances. Mental Health & Subst Abuse Tx Therapist Name of Therapist: . Hospital Insurance Representative Name of Hospital Insurance Representative: [employer] Phone Number for Hospital Insurance Representative: [phone] Date of Appointment with Hospital Insurance Representative: 05/03/20 Time of Appointment with Hospital Insurance Representative: 1:00 p.m. Case Management Appointment Comment: Will call you to discuss school Post Discharge Appointments Primary Care Physician Name Of Family Doctor: Dr. INGA Nuñez Primary [facility] Date of Appointment with PCP: 05/03/20 Time of Appointment with PCP: 10:00 am Provider Appointment Comment: In person Primary Care Release of Information: Obtained, Reviewed and Signed Partial or Psych Rehab Name of Partial or Psych Rehab: [facility] Phone Number of Partial or Psych Rehab: [phone] ext [phone] Time of Appointment at Partial or Psych Rehab: Intake completed on 04/29 - The program will start in 2 weeks and they Partial or Psych Rehab Appointment Comment: will call you to schedule the first day Release of Information for Partial or Psych Rehab: Obtained, Reviewed and Signed Smoking Cessation Counseling Tobacco Cessation Medication Prescribed at Discharge: Not Applicable/Non-Smoker Contact Information Discharge Discharge Address: [address] [place] [address] Discharge Plan Discharge Items Patient Disposition: Home - Self-Care Reason For Visit: UNSPECIFIED PSYCHOSIS 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 Follow through with your scheduled aftercare appointments. If unable to keep an appointment, please call to reschedule. 2. Take your medication only as prescribed. Medication should not be changed or stopped without the approval of your doctor. In the event of worsening symptoms or concerns about side effects, contact your doctor immediately. 3. Utilize new healthy coping skills, anger management skills, and stress management skills learned during your hospitalization. Journal feelings and process them with a support person. Identify stressors or situations that may result in relapse, deterioration or inappropriate behaviors and develop a plan to deal with those issues. 4. If your coping skills are ineffective and you are in crisis, contact your outpatient providers for direction. If unable to reach your providers, please call the [facility] CRISIS LINE AT , go to the [facility] walk-in center at [address], [place], or go to the closest Emergency Room. 5. Avoid alcohol and un-prescribed drugs, including marijuana, which can worsen psychiatric symptoms and trigger relapse. 6. You have been provided with the Mental Health Advance Directives Pamphlet for your review. AFTERCARE APPOINTMENTS: * Please call your insurance company prior to your scheduled appointment to confirm your aftercare providers are covered. Take your insurance information to your appointments. WHO TO CALL AND WHEN: Medical Emergencies: For questions or emergencies related to your hospital stay, please contact the Inpatient Behavioral Health Unit at [phone]. A electric razor mechanic is on-call 07/09 for the Behavioral Health Unit for emergencies At any time you feel your situation is an emergency, you may also call 911 immediately. Pending Studies at Discharge: No Stand-Alone Forms: My [facility] Urvew, Smoking Cessation Medications and DC Order Prescriptions: New risperidone 3 mg tablet 3 mg PO HS Qty: 30 RF: 0 No Action No Known Home Medications RF: 0 Discharge Orders: Discharge Order (Routine); Ordered 05/01/20 Ordered By: Nayeli Julian Admission Data Admit Date/Time: 04/20/20 14:14 Attending Provider: Dayana Morales Admit Provider: Dayana Morales Primary Care Provider: PCP,NO Other Interventions: PSY Interdisciplinary Discharge Planning Last Done: 03/17/21 10:39 Coding Level of Care Code 59348 D/C day mgmt > 30 min Diagnoses Psychosis F29 Cannabis abuse F12.10
== END 2020-05-01 14:07 | disposition home or self-care (01) | DRG 885 ==
LOC: ED 07:56 → 3S 14:14